=== PATIENT | male | born 1960 | race Caucasian/White ===

== ENCOUNTER 2018-12-01 10:14 | Emergency (ER) | payer OTHER ==
[2018-12-01 10:58] VITALS: PULSE 67; BMI 29.1
--- NOTE | 2018-12-01 11:00 | PDOC ---
History of Present Illness - General Chief Complaint: Injury Stated Complaint: FALL Time Seen by Provider: 12/01/18 10:32 - History of Present Illness Initial Comments: 12/01/18 10:59 The patient is a 58 year old male with a PMH of COPD (not on home O2) presents s /p fall. Patient was standing on a chair (approximately 3 feet high) spackling his ceiling when the chair underneath him broke and he fell on his back, hitting his head. No LOC, was able to ambulate using his cane (baseline) after falling. Now c/o headache, R knee pain. Patient reports a h/o noxious fumes from his ceiling for the last month with some blurry vision. Allergy: Penicillin Surgical: none reported PMD: Dr. Mcghee Past History - Past Medical History Allergies/Adverse Reactions: Allergies Allergy/AdvReac Type Severity Reaction Status Date / Time Penicillins Allergy Severe Difficulty Verified 12/01/18 10:39 Breathing CHOCOLATE AdvReac Mild Rash Uncoded 12/01/18 10:39 EGGS AdvReac Mild Rash Uncoded 12/01/18 10:39 Home Medications: Ambulatory Orders Albuterol Sulfate [Proair Hfa -] 1 - 2 inh PO QID 03/10/15 Beclomethasone Dipropionate [Qvar] 8.7 gm IH BID 03/10/15 traZODone HCL [Desyrel -] 50 mg PO HS 03/10/15 Fluticasone/Salmeterol [Advair 250-50 Diskus] 1 each IH Q12H #1 disk.w.dev 03/12 Ipratropium/Albuterol Sulfate [Combivent Respimat Inhal [place]] 4 gm IH Q6H #1 aer.w.adap 03/12/15 Montelukast Na [Singulair -] 10 mg PO HS #30 tablet 03/12/15 Nicotine Patch [Nicoderm Patch -] 1 patch TD DAILY #30 patch 03/12/15 predniSONE [Deltasone -] 5 mg PO ASDIR #78 tab 03/12/15 Asthma: Yes COPD: Yes - Immunization History Immunization Up to Date: Yes - Suicide/Smoking/Psychosocial Hx Smoking History: Never smoked Have you smoked in the past 12 months: No Number of Cigarettes Smoked Daily: 8 Information on smoking cessation initiated: No 'Breaking Loose' booklet given: 08/31/11 Hx Alcohol Use: No Drug/Substance Use Hx: No Substance Use Type: Alcohol, Cocaine Hx Substance Use Treatment: Yes Review of Systems - Review of Systems Constitutional: Yes: Other (Headache). No: Chills, Fever HEENTM: Yes: Blurred Vision Respiratory: No: Cough, Shortness of Breath Cardiac (ROS): No: Chest Pain, Lightheadedness, Palpitations, Syncope ABD/GI: No: Constipated, Diarrhea, Nausea, Vomiting *Physical Exam - Vital Signs Last Vital Signs Temp Pulse Resp BP Pulse Ox 97.6 F 67 18 108/72 96 12/01/18 10:29 12/01/18 10:29 12/01/18 10:29 12/01/18 10:29 12/01/18 10:29 - Physical Exam Comments: 12/01/18 14:51 Triage VS reviewed Trauma: pelvis stable, alert, moves all 4 extremities, No Kaur sign/Mastoid ecchymosis General Appearance: Yes: Nourished, Obese HEENT: positive: Normal Voice, Hearing Grossly Normal, Other (Snellen Test: R: 20/25, L: 20/40) Neck: positive: Trachea midline, Supple Respiratory/Chest: positive: Lungs Clear, Normal Breath Sounds Cardiovascular: positive: S1, S2 Gastrointestinal/Abdominal: positive: Normal Bowel Sounds, Soft. negative: Tender, Hernia, Mass Medical Decision Making - Medical Decision Making 12/01/18 12:02 58 y/o male s/p mechanical fall, c/o headache VS unremarkable Trauma exam w/o concerning findings - patient moves all 4 extremities, pelvis stable, ambulatory, no obvious cranial hematoma, no Kaur sign, mastoid ecchmosis; No focal neurologic deficit, however RLE w/tibial tuberosity TTP Will CT Head as per [place] criteria, R Tib/Fib, R knee Tylenol for pain control. Reassess 12/01/18 12:06 Case d/w social work, will evaluate patient in ED 12/01/18 12:[address] negative Tib Fib, Knee XR negative Patient recieving IV analgesia 12/01/18 14:26 Patient ambulatory around ED, symptomatically improved. Will discharge home with return precautions, pain control. I discussed the physical exam findings, ancillary test results and final diagnoses with the patient. I answered all of the patient's questions. The patient was satisfied with the care received and felt comfortable with the discharge plan and treatment plan. The patient will return to the Emergency Department with any new, persistent or worsening symptoms. *DC/Admit/Observation/Transfer Diagnosis at time of Disposition: Fall - Discharge Dispostion Disposition: HOME Condition at time of disposition: Fair Decision to Admit order: No - Referrals Referrals: Richard Mcghee MD [Primary Care Provider] - - Patient Instructions Printed Discharge Instructions: Muscle Strain, How to Prevent Falls Additional Instructions: You were evaluated today for a fall. A copy of your Head CT and X-rays were negative for any concerning findings. You can take Tylenol (up to 4000 mg daily) and Motrin (up 3200 mg daily) every 8 hours for pain. A psych social worker will be calling you with resources for your housing issue. Return to the ED for any new/worsening/concerning symptoms. - Post Discharge Activity
--- NOTE | 2018-12-01 11:06 | PDOC ---
Documentation entered by Joceline Cramer SCRIBE, acting as scribe for Rohan Collier MD. Rohan Collier MD: This documentation has been prepared by the ashleyibeShoaib Natalie, SCRIBE, under my direction and personally reviewed by me in its entirety. I confirm that the documentation accurately reflects all work, treatment, procedures, and medical decision making performed by me. Attending Attestation - Resident Resident Name: ErisInga - ED Attending Attestation I have performed the following: I have examined & evaluated the patient, The case was reviewed & discussed with the resident, I agree w/resident's findings & plan, Exceptions are as noted - HPI HPI: 12/01/18 12:10 The patient is a 58-year-old male, with a past medical history of asthma, COPD ( not on home O2), and bipolar disorder, who presents to the ED s/p mechanical fall today. Patient states that he was standing on a chair (approximately 3ft high) to patch up some holes in the ceiling. The chair broke and the patient fell on his buttocks and hit his head against the door. He denies any loss of consciousness but reports dizziness after the fall. He was down for 10 minutes before he got up and ambulated to a chair. He endorses headache and lower back/ tailbone/LT knee pain. The patient denies having any other injuries or symptoms. Allergies: Penicillins. - Physicial Exam PE: 12/01/18 12:13 Vitals: Triage Vital signs reviewed General Appearance: no acute distress, well nourished well developed, Head: Atraumatic, normocephalic Eyes: Pupils equal reactive round, extraocular movement intact Ears: TM's normal bilaterally; Nose: Nares patent bilaterally;no nasal congestion Throat: Posterior oropharynx without erythema, mucous membranes moist, Neck: Supple;No Nuchal rigidity Chest Wall: Nontender Cardiac: Regular rate and rhythm, no murmurs, no rubs, no gallops, Lungs: Clear to auscultation bilateral, good air movement bilaterally, Abdomen: Soft, nondistended, normal bowel sounds, nontender to palpation Rectal: Exam deferred Extremities: Full range of motion to all extremities, no cyanosis, clubbing, or edema Skin: Warm and dry, no rashes or lesions, no petechiae Neuro: AOX3; Cranial Nerves 2-12 grossly intact, Strength intact to all extremities, Sensation intact to all extremities Psych: normal mood, normal affect - Medical Decision Making 12/01/18 16:38 Imaging negative no acute pathology found patient able to ambulate more comfortably after Tylenol patient will follow up with his primary care provider this week Findings, the need for follow-up and strict return instructions discussed with patient.
[2018-12-01] MEDS ORDERED: ACETAMINOPHEN 1000 MG/100 ML VIAL (NON FORMULARY) IVPB ONE (11:29)
[2018-12-01] MEDS ORDERED: ACETAMINOPHEN INJECTION 100 ML IVPB ONE (12:16)
[2018-12-01 15:29] VITALS: BP 109/69; TEMP 97.7
== END 2018-12-01 15:29 | disposition home or self-care (01) ==
LOC: JER 10:14
PROC: 3E033NZ Introduction of Analgesics, Hypnotics, Sedatives into Peripheral Vein, Percutaneous Approach (ICD-10-PCS; principal; 2018-12-01)
DX: Z04.3 Encounter for examination and observation following other accident (principal); W18.39XA Other fall on same level, initial encounter; Y93.89 Activity, other specified; Y92.008 Other place in unspecified non-institutional (private) residence as the place of occurrence of the external cause; J44.9 Chronic obstructive pulmonary disease, unspecified
CPT/HCPCS: 70450-TC; 72100-TC-FY; 73562-TC-RT-FY; 73590-TC-RT-FY; 96374; 99281-25; J0131

== ENCOUNTER 2019-01-09 21:45 | Inpatient (IN) | payer OTHER ==
[2019-01-09] MEDS ORDERED: methylPREDNISolone NA SUCC 125 MG/2 ML VIAL IVPB ONE (22:44)
[2019-01-09] MEDS ORDERED: MAGNESIUM SULF 50% (8.12 MEQ/2 ML-1 GM VIAL) IVPB ONE (22:44)
[2019-01-09] MEDS ORDERED: ALBUTEROL SO4 2.5/IPRATROPIUM 0.5 INH SOL 3 ML VIAL.NEB. NEB ONE ×2 (22:44→23:02)
[2019-01-09] MEDS ORDERED: MAGNESIUM 1GM/D5W - 1 GM/100 ML IVPB IVPB ONE (23:03)
[2019-01-09] MEDS ORDERED: methylPREDNISolone NA SUCC 125 MG/2 ML VIAL ONE (23:03)
--- NOTE | 2019-01-09 23:18 | PDOC ---
History of Present Illness - General Chief Complaint: Shortness of Breath Stated Complaint: SOB Time Seen by Provider: 01/09/19 22:30 History Source: Patient Exam Limitations: No Limitations - History of Present Illness Initial Comments: 01/09/19 23:17 58 yo M with a hx of COPD/asthma (not on home O2), essential tremors, and bipolar disorder presents to the emergency department with SOB that began this morning. Per the patient, he gets intermittent SOB episodes. He states he has a strong bleach like odor in his apartment for the past 2-3 months that worsens his shortness of breath. He states he has chest tightness with radiation to the his back that began today. He describes the pain as pressure like sensation. Denies fever and chills, but endorses non productive coughs. Past History - Past Medical History Allergies/Adverse Reactions: Allergies Allergy/AdvReac Type Severity Reaction Status Date / Time Penicillins Allergy Severe Difficulty Verified 01/09/19 22:14 Breathing CHOCOLATE AdvReac Mild Rash Uncoded 01/09/19 22:14 EGGS AdvReac Mild Rash Uncoded 01/09/19 22:14 Home Medications: Ambulatory Orders Acetaminophen [Tylenol Extra Strength] 1,000 mg PO BID 01/09/19 Albuterol Sulfate [Proair Hfa] 8.5 gm IH BID 01/09/19 Famotidine [Pepcid -] 40 mg PO DAILY 01/09/19 Fluticasone/Salmeterol [Advair 250-50 Diskus] 1 each IH BID 01/09/19 Gabapentin [Neurontin -] 300 mg PO BID 01/09/19 Ipratropium/Albuterol Sulfate [Combivent Respimat Inhal [place]] 4 gm IH BID 01/09 Lamotrigine [Lamictal] 100 mg PO DAILY 01/09/19 Loratadine 10 mg PO DAILY 01/09/19 Montelukast Sodium [Singulair] 10 mg PO HS 01/09/19 Primidone [Mysoline -] 50 mg PO HS 01/09/19 Propranolol HCl 60 mg PO DAILY 01/09/19 Topiramate [Trokendi Xr] 100 mg PO BID 01/09/19 Trazodone HCl 200 mg PO HS 01/09/19 Asthma: Yes COPD: Yes - Immunization History Immunization Up to Date: Yes - Psycho Social/Smoking Cessation Hx Smoking History: Never smoked Have you smoked in the past 12 months: Yes Number of Cigarettes Smoked Daily: 8 'Breaking Loose' booklet given: 08/31/11 Hx Alcohol Use: No Drug/Substance Use Hx: No Substance Use Type: Alcohol, Cocaine Hx Substance Use Treatment: Yes Review of Systems - Review of Systems Able to Perform ROS?: Yes Is the patient limited Wallisian proficient: No Constitutional: No: Chills, Diaphoresis, Fever, Weakness HEENTM: No: Eye Pain, Ear Pain, Nose Pain, Throat Pain, Mouth Pain Respiratory: Yes: Cough, Shortness of Breath, Wheezing. No: Hemoptysis Cardiac (ROS): Yes: Chest Tightness. No: Chest Pain, Lightheadedness, Palpitations, Syncope ABD/GI: No: Constipated, Diarrhea, Nausea, Rectal Bleeding, Vomiting, Tarry Stools : No: Burning, Dysuria, Hematuria, Incontinence Musculoskeletal: No: Back Pain, Joint Pain, Neck Pain Integumentary: No: Bruising, Erythema, Rash Neurological: No: Headache, Numbness, Tingling, Tremors Psychiatric: No: Change in Appetite Endocrine: No: Unexplained Weight Gain Hematologic/Lymphatic: No: Anemia *Physical Exam - Vital Signs Last Vital Signs Temp Pulse Resp BP Pulse Ox 97.6 F 90 24 H 133/97 100 01/09/19 21:45 01/09/19 21:45 01/09/19 21:45 01/09/19 21:45 01/09/19 21:45 - Physical Exam Respiratory/Chest: positive: Decreased Breath Sounds, Rhonchi (bilaterally), Wheezing (bilaterally). negative: Chest Tender, Lungs Clear, Normal Breath Sounds, Respiratory Distress, Accessory Muscle Use Cardiovascular: positive: Regular Rhythm, Regular Rate, S1, S2. negative: Systolic Murmur ED Treatment Course - LABORATORY CBC & Chemistry Diagram: 01/09/19 23:12 01/09/19 23:12 - RADIOLOGY Radiology Studies Ordered: Category Date Time Status CHEST CTA [CT] Stat CT Scan 01/09/19 23:03 Ordered CHEST PA & LAT [RAD] Stat Radiology 01/09/19 22:43 Ordered Medical Decision Making - Medical Decision Making 01/10/19 03:19 CTA states it is limited due to under opacification of the pulmonary arteries. No pulmonary embolus in the major central pulmonary arteries. Distal to this, there is no definite embolus but these arteries are not well evaluated due to under opacification. Lungs are clear of acute disease. Patient was reassessed s/p solumedrol and duoneb x3. Continues to have SOB with wheezing auscultated bilaterally on exam with O2% at 90-92. Patient to be admitted for COPD exacerbation. Discharge - Discharge Information Problems reviewed: Yes Clinical Impression/Diagnosis: COPD - Chronic obstructive lung disease Condition: Fair - Follow up/Referral - Patient Discharge Instructions - Post Discharge Activity
[2019-01-09 23:20] LABS: BASO % 0.6 % (0-2.0); EOS % 1.7 % (0-4.5); HEMATOCRIT 42.5 % (35.4-49); HEMOGLOBIN 14.1 GM/dL (11.7-16.9); LYMPH % 30.5 % (8-40); MCH 31.6 pg (25.7-33.7); MCHC 33.1 g/dl (32.0-35.9); MEAN CELL VOLUME 95.4 fl (80-96); MEAN PLT VOLUME 8.7 fl (7.5-11.1); MONO % 4.6 % (3.8-10.2); NEUT % 62.6 % (42.8-82.8); PLATELET COUNT 209 K/MM3 (134-434); RBC 4.46 M/mm3 (4.00-5.60); RDW 14.1 % (11.9-15.9); WHITE BLOOD COUNT 9.5 K/mm3 (4.0-10.0)
[2019-01-09 23:31] LABS: INR 1.07 (0.83-1.09); PROTHROMBIN TIME (PATIENT) 12.6 SEC (9.7-13.0)
[2019-01-09 23:49] LABS: ALBUMIN 3.8 g/dl (3.4-5.0); BILIRUBIN,TOTAL 0.5 mg/dL (0.2-1); BLOOD UREA NITROGEN 19.2 mg/dL (7-18); CALCIUM 9.3 mg/dL (8.5-10.1); CREATININE 0.9 mg/dL (0.55-1.3); MAGNESIUM 2.4 mg/dL (1.8-2.4); POTASSIUM 3.9 mmol/L (3.5-5.1); TOT PROT 7.3 g/dl (6.4-8.2)
[2019-01-09 23:54] LABS: N-TERMINAL BNP 98.3 pg/ml (5-125)
--- NOTE | 2019-01-10 00:34 | PDOC ---
Documentation entered by Jonathan Fan SCRIBE, acting as scribe for Lori Wyman MD. Lori Wyman MD: This documentation has been prepared by the Meng rodriguez Xhesika, SCRIBE, under my direction and personally reviewed by me in its entirety. I confirm that the documentation accurately reflects all work, treatment, procedures, and medical decision making performed by me. Attending Attestation - Resident Resident Name: Tyler Ocampo - ED Attending Attestation I have performed the following: I have examined & evaluated the patient, The case was reviewed & discussed with the resident, I agree w/resident's findings & plan, Exceptions are as noted - HPI HPI: 01/09/19 22:32 The patient is a 58-year-old male, with a past medical history of asthma, COPD ( not on home O2), tremors, and bipolar disorder, who presents to the ED with SOB. Pt was in the ED accompanying his mother who was admitted in the ED when he came out the bathroom with his cane, patient was diaphoretic, wheezing, endorsed vertigo and felt SOB. Pt was immediately sat on a bed and was seen. Patient reports he has been endorsing chronic lower back pain (L5) for the past month. The patient denies chest pain, shortness of breath, headache and dizziness. Denies fever, chills, cough, nausea, vomiting, diarrhea and constipation. Denies dysuria, frequency, urgency and hematuria. Allergies: penicillins. chocolate. PCP: [facility] - Physicial Exam PE: 01/10/19 00:27 obese 58 yo male became diaphoretic,short of breath while visiting his mother who was an admitted patient at [facility] neck supple lungs diffuse coarse wheezing cvs tachycardia skin diaphoretic abdomen protuberant,nontender neuro axox3, ambulating w cane psych anxious 01/10/19 00:39 - Medical Decision Making 01/10/19 00:41 labs essentially unremarkable ,sl elevated glucose pt has wheezing and received bronchodilators, steroids, magnesium 01/10/19 00:45 EKG is normal sinus rhythm at 88 bpm, QTC 440 ms, some nonspecific ST abnormalities.This was compared to his EKG from 2014 and there are no significant changes since that time. 01/10/19 00:48 01/10/19 00:55 IMP copd exacerbation admit
--- NOTE | 2019-01-10 04:32 | HP ---
Admitting History and Physical - Primary Care Physician PCP: Dr. Mcghee - Admission Chief Complaint: SOB History of Present Illness: 58 year old male with PMHx of COPD/asthma, essential tremors, and bipolar disorder was in the ED accompanying his mother when suddenly patient became diaphoretic, SOB, wheezing, complained of vertigo like sensation. As per patient , he gets intermittent SOB episodes, with chest tightness for about a month. He states he has a strong bleach like odor in his apartment for the past 2-3 months that worsens his shortness of breath. Patient states he went to urgent care last week was given antibiotics and steroids, and was to have a follow up there, patient denies fever and chills, but endorses non-productive cough. 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) Cardiovascular: Yes: HTN Pulmonary: Yes: Asthma, COPD Gastrointestinal: Yes: GERD Psych: Yes: Bipolar - Smoking History Smoking history: Smoker current status UNK Have you smoked in the past 12 months: Yes Aproximately how many cigarettes per day: 8 - Alcohol/Substance Use Hx Alcohol Use: No History of Substance Use: reports: Cocaine - Social History ADL: Independent History of Recent Travel: No Home Medications - Allergies Allergies/Adverse Reactions: Allergies Allergy/AdvReac Type Severity Reaction Status Date / Time Penicillins Allergy Severe Difficulty Verified 01/09/19 22:14 Breathing CHOCOLATE AdvReac Mild Rash Uncoded 01/09/19 22:14 EGGS AdvReac Mild Rash Uncoded 01/09/19 22:14 - Home Medications Home Medications: Ambulatory Orders Acetaminophen [Tylenol Extra Strength] 1,000 mg PO BID 01/09/19 Albuterol Sulfate [Proair Hfa] 8.5 gm IH BID 01/09/19 Famotidine [Pepcid -] 40 mg PO DAILY 01/09/19 Fluticasone/Salmeterol [Advair 250-50 Diskus] 1 each IH BID 01/09/19 Gabapentin [Neurontin -] 300 mg PO BID 01/09/19 Ipratropium/Albuterol Sulfate [Combivent Respimat Inhal [place]] 4 gm IH BID 01/09 Lamotrigine [Lamictal] 100 mg PO DAILY 01/09/19 Loratadine 10 mg PO DAILY 01/09/19 Montelukast Sodium [Singulair] 10 mg PO HS 01/09/19 Olopatadine HCl 2.5 ml OP BID 01/09/19 Primidone [Mysoline -] 100 mg PO HS 01/09/19 Propranolol HCl 60 mg PO DAILY 01/09/19 Topiramate [Trokendi Xr] 100 mg PO BID 01/09/19 Trazodone HCl 100 mg PO BID 01/09/19 Varenicline Tartrate [Chantix] 1 mg PO BID 01/09/19 Family Medical History Family History: Denies Review of Systems - Review of Systems Constitutional: reports: No Symptoms Eyes: reports: No Symptoms HENT: reports: No Symptoms Neck: reports: No Symptoms Cardiovascular: reports: Chest Pain Respiratory: reports: Cough, SOB on Exertion, Wheezing Gastrointestinal: reports: No Symptoms Genitourinary: reports: No Symptoms Musculoskeletal: reports: No Symptoms Integumentary: reports: No Symptoms Neurological: reports: Dizziness Endocrine: reports: No Symptoms Hematology/Lymphatic: reports: No Symptoms Psychiatric: reports: No Symptoms Physical Examination Vital Signs: Vital Signs Temperature 97.6 F 01/09/19 21:45 Pulse Rate 90 01/09/19 21:45 Respiratory Rate 24 H 01/09/19 21:45 Blood Pressure 133/97 01/09/19 21:45 O2 Sat by Pulse Oximetry (%) 100 01/09/19 21:45 Constitutional: Yes: No Distress, Calm Eyes: Yes: Conjunctiva Clear, EOM Intact HENT: Yes: Atraumatic, Normocephalic Neck: Yes: Supple, Trachea Midline Cardiovascular: Yes: Regular Rate and Rhythm Respiratory: Yes: Regular, Rales Gastrointestinal: Yes: Normal Bowel Sounds, Soft Musculoskeletal: Yes: WNL Extremities: Yes: WNL Edema: No Peripheral Pulses WNL: Yes Neurological: Yes: Alert, Oriented Labs: CBC, BMP 01/09/19 23:12 01/09/19 23:12 Imaging - Results Cat Scan: Report Reviewed (CTA states it is limited due to under opacification of the pulmonary arteries. No pulmonary embolus in the major central pulmonary arteries. Distal to this, there is no definite embolus but these arteries are not well evaluated due to under opacification. Lungs are clear of acute disease. ) EKG: Report Reviewed (EKG is normal sinus rhythm at 88 bpm) Problem List - Problems (1) Acute exacerbation of COPD with asthma Code(s): J44.1 - CHRONIC OBSTRUCTIVE PULMONARY DISEASE W (ACUTE) EXACERBATION; J45.901 - UNSPECIFIED ASTHMA WITH (ACUTE) EXACERBATION (2) Bipolar disorder current episode depressed Code(s): F31.30 - BIPOLAR DISORD, CRNT EPSD DEPRESS, MILD OR MOD SEVERT, UNSP (3) Essential tremor Code(s): G25.0 - ESSENTIAL TREMOR (4) GERD (gastroesophageal reflux disease) Code(s): K21.9 - GASTRO-ESOPHAGEAL REFLUX DISEASE WITHOUT ESOPHAGITIS (5) Nicotine dependence Code(s): F17.200 - NICOTINE DEPENDENCE, UNSPECIFIED, UNCOMPLICATED Assessment/Plan 58 year old male with PMHx of COPD/asthma, essential tremors, and bipolar disorder was in the ED accompanying his mother when suddenly patient became diaphoretic, SOB, wheezing, complained of vertigo like sensation. As per patient , he gets intermittent SOB episodes, with chest tightness for about a month. #Acute COPD exacerbation CTA states it is limited due to under opacification of the pulmonary arteries. No pulmonary embolus in the major central pulmonary arteries. Distal to this, there is no definite embolus but these arteries are not well evaluated due to under opacification. Lungs are clear of acute disease. in ED given : nebsx3, solu-medrol and magnesium sulfate -continue with oxygen 3 L/min -continue with solumedrol 40mg IV q8h -continue with duonebs standing q 4 hours -continue with Montelukast Sodium 10 mg PO HS # Esential tremors -Primidone 100 mg PO HS -Propranolol HCl 60 mg PO DAILY -Topiramate 100 mg PO BID # Bipolar disorder -Lamotrigine 100 mg PO DAILY -Trazodone HCl 100 mg PO BID # GERD -Famotidine 40 mg PO DAILY # nicotine dependence - Varenicline Tartrate 1 mg PO BID Diet: regular diet DVT PPX: heparin SQ Visit type - Emergency Visit Emergency Visit: Yes ED Registration Date: 01/10/19 Care time: The patient presented to the Emergency Department on the above date and was hospitalized for further evaluation of their emergent condition. - New Patient This patient is new to me today: Yes Date on this admission: 01/10/19 - Critical Care Critical Care patient: No
[2019-01-10] MEDS ORDERED: ACETAMINOPHEN 325 MG TABLET (FP) PO PRN (04:49)
[2019-01-10] MEDS ORDERED: IPRATROPIUM BR 0.02% 0.5 MG/2.5 ML VIAL.NEB. NEB ONE ×2 (08:02→13:02)
[2019-01-10] MEDS ORDERED: ALBUTEROL SO4 0.083% IH SOL 2.5 MG/3 ML VIAL.NEB. NEB ONE ×2 (08:02→13:02)
[2019-01-10] MEDS: IPRATROPIUM BR 0.02% 0.5 MG/2.5 ML VIAL.NEB. NEB SCH ×4 (08:07→20:43)
[2019-01-10] MEDS: ALBUTEROL SO4 0.083% IH SOL 2.5 MG/3 ML VIAL.NEB. NEB SCH ×4 (08:07→20:43)
[2019-01-10] MEDS ORDERED: lamoTRIgine 100 MG TABLET (FP) ONE (09:33)
[2019-01-10] MEDS: lamoTRIgine 100 MG TABLET (FP) PO SCH (09:35)
--- NOTE | 2019-01-10 09:52 | EKG ---
Test Reason : Blood Pressure : / mmHG Vent. Rate : 088 BPM Atrial Rate : 088 BPM P-R Int : 164 ms QRS Dur : 086 ms QT Int : 364 ms P-R-T Axes : 071 073 067 degrees QTc Int : 440 ms NORMAL SINUS RHYTHM POSSIBLE LEFT ATRIAL ENLARGEMENT NONSPECIFIC ST ABNORMALITY ABNORMAL ECG WHEN COMPARED WITH ECG OF 10-MAR-2015 15:57, NO SIGNIFICANT CHANGE WAS FOUND Confirmed by SILVIA GALINDO, JESSICA ([id number]) on 01/10/2019 9:52:05 AM Referred By: Confirmed By:JESSICA VEGA MD
[2019-01-10] MEDS ORDERED: PATIENT'S OWN MEDICATION (NON-FORMULARY) (Propranolol Hcl [Propranolol Hcl] 60 MG) PO SCH (10:00)
[2019-01-10] MEDS ORDERED: LAMOTRIGINE 100 MG PO SCH (10:00)
[2019-01-10] MEDS ORDERED: PATIENT'S OWN MEDICATION (NON-FORMULARY) (Famotidine 40 MG) PO SCH (10:00)
[2019-01-10] MEDS ORDERED: PATIENT'S OWN MEDICATION (NON-FORMULARY) (Trazodone Hcl [Trazodone Hcl] 100 MG) PO SCH (10:00)
[2019-01-10] MEDS ORDERED: PATIENT'S OWN MEDICATION (NON-FORMULARY) (Topiramate [Trokendi Xr] 100 MG) PO SCH (10:00)
[2019-01-10] MEDS: VARENICLINE TARTRATE 1 MG TAB PO SCH (11:15)
[2019-01-10] MEDS: traZODone HCL 100 MG TABLET (FP) PO SCH (11:15)
--- NOTE | 2019-01-10 11:24 | PN ---
Progress Note, Physician Chief Complaint: COPD Exacerbation SOB History of Present Illness: Previous notes and events reviewed awake and alert NAD continues to have SOB with non productive cough and chest tightness no acute events overnight - Current Medication List Current Medications: Active Medications Acetaminophen (Tylenol -) 650 mg PO Q4H PRN PRN Reason: PAIN LEVEL 1-5 Albuterol Sulfate (Ventolin 0.083% Nebulizer Soln -) 1 amp NEB RQID [facility] Last Admin: 01/10/19 08:07 Dose: 1 amp Famotidine (Pepcid -) 40 mg PO DAILY [facility] Gabapentin (Neurontin -) 300 mg PO BID [facility] Heparin Sodium (Porcine) (Heparin -) 5,000 unit SQ BID [facility] Ipratropium [place] (Atrovent 0.02% Nebulizer -) 1 amp NEB RQID [facility] Last Admin: 01/10/19 08:07 Dose: 1 amp Lamotrigine (Lamictal -) 100 mg PO DAILY [facility] Last Admin: 01/10/19 09:35 Dose: 100 mg Methylprednisolone Sodium Succinate (Solu-Medrol -) 40 mg IVPUSH Q8H-IV [facility] Montelukast Sodium (Singulair -) 10 mg PO HS [facility] Non-Formulary Medication (Topiramate [Trokendi Xr]) 100 mg PO BID [facility] Primidone (Mysoline -) 100 mg PO HS [facility] Propranolol HCl (Inderal La -) 60 mg PO DAILY [facility] Trazodone HCl (Desyrel -) 100 mg PO BID [facility] Last Admin: 01/10/19 11:15 Dose: Not Given Varenicline (Chantix -) 1 mg PO BID [facility] Last Admin: 01/10/19 11:15 Dose: Not Given - Objective Vital Signs: Vital Signs Temperature 97.6 F 01/09/19 21:45 Pulse Rate 75 01/10/19 08:00 Respiratory Rate 18 01/10/19 08:00 Blood Pressure 127/84 01/10/19 08:00 O2 Sat by Pulse Oximetry (%) 99 01/10/19 08:00 Constitutional: Yes: No Distress, Calm Eyes: Yes: Conjunctiva Clear HENT: Yes: Atraumatic Cardiovascular: Yes: Regular Rate and Rhythm Respiratory: Yes: Regular, Rhonchi Gastrointestinal: Yes: Normal Bowel Sounds, Soft, Abdomen, Obese Musculoskeletal: Yes: WNL Extremities: Yes: WNL Edema: No Neurological: Yes: Alert, Oriented Psychiatric: Yes: Alert, Oriented Labs: CBC, BMP 01/09/19 23:12 01/09/19 23:12 INR, PTT INR 1.07 (0.83-1.09) 01/09/19 23:12 Problem List - Problems (1) Bipolar disorder Assessment/Plan: -Trazodone, Lamictal Code(s): F31.9 - BIPOLAR DISORDER, UNSPECIFIED (2) Acute exacerbation of COPD with asthma Assessment/Plan: -Pulm consult -Bronchodilators -Solumedrol -Keep SpO2 >90% -O2 via NC -Montelukast -Chest CTA shows suboptimal opacification of the pulmonary vasculature with no gross evidence of of PE, no acute pathology within chest Code(s): J44.1 - CHRONIC OBSTRUCTIVE PULMONARY DISEASE W (ACUTE) EXACERBATION; J45.901 - UNSPECIFIED ASTHMA WITH (ACUTE) EXACERBATION (3) Essential tremor Assessment/Plan: -Propanolol Code(s): G25.0 - ESSENTIAL TREMOR (4) GERD (gastroesophageal reflux disease) Assessment/Plan: -Famotidine Code(s): K21.9 - GASTRO-ESOPHAGEAL REFLUX DISEASE WITHOUT ESOPHAGITIS (5) Nicotine dependence Assessment/Plan: -Varenicline Tartrate Code(s): F17.200 - NICOTINE DEPENDENCE, UNSPECIFIED, UNCOMPLICATED Assessment/Plan see problem list dvt ppx
[2019-01-10] MEDS: FAMOTIDINE 40 MG TABLET PO SCH (11:45)
[2019-01-10] MEDS: HEPARIN NA (PORCINE) 5,000 UNITS/ML 1ML VIAL SQ SCH (11:45)
[2019-01-10] MEDS: methylPREDNISolone NA SUCC 40 MG/1 ML VIAL IVPUSH SCH ×2 (11:45→18:45)
[2019-01-10] MEDS: GABAPENTIN 300 MG CAPSULE (FP) PO SCH (11:45)
[2019-01-10] MEDS ORDERED: HEPARIN NA (PORCINE) 5,000 UNITS/ML 1ML VIAL ONE (11:51)
[2019-01-10] MEDS ORDERED: GABAPENTIN 100 MG CAPSULE (FP) ONE (11:51)
[2019-01-10] MEDS ORDERED: methylPREDNISolone NA SUCC 40 MG/1 ML VIAL ONE (11:51)
--- NOTE | 2019-01-10 13:16 | CON.PULM ---
Consult Consult Specialty:: PULMONARY Referred by:: Dr Mcghee Reason for Consultation:: shortness of breath - History of Present Illness Chief Complaint: shortness of breath History of Present Illness: 58yo male with h/o COPD, essential tremors, bipolar disorder who was admitted with worsening shortness of breath for months. Denies chest pain or discomfort but does experience chest tightness. No fevers, chills or sweats. States that there is an odor in his apartment that he thinks is triggering his shortness of breath. +nonproductive cough and wheezing. He quit smoking in June after smoking about 1 PPD x 40 years. Was recently started on Advair, Combivent and albuterol. Was seen in urgent care recently who started him on prednisone and antibiotics. 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 (essential tremors) Cardio/Vascular: Yes: HTN Pulmonary: Yes: Asthma, COPD Gastrointestinal: Yes: GERD Psych: Yes: Bipolar - Alcohol/Substance Use Hx Alcohol Use: No History of Substance Use: reports: Cocaine - Smoking History Smoking history: Smoker current status UNK Have you smoked in the past 12 months: Yes Aproximately how many cigarettes per day: 8 - Social History ADL: Independent History of Recent Travel: No Home Medications - Allergies Allergies/Adverse Reactions: Allergies Allergy/AdvReac Type Severity Reaction Status Date / Time Penicillins Allergy Severe Difficulty Verified 01/09/19 22:14 Breathing CHOCOLATE AdvReac Mild Rash Uncoded 01/09/19 22:14 EGGS AdvReac Mild Rash Uncoded 01/09/19 22:14 - Home Medications Home Medications: Ambulatory Orders Acetaminophen [Tylenol Extra Strength] 1,000 mg PO BID 01/09/19 Albuterol Sulfate [Proair Hfa] 8.5 gm IH BID 01/09/19 Famotidine [Pepcid -] 40 mg PO DAILY 01/09/19 Fluticasone/Salmeterol [Advair 250-50 Diskus] 1 each IH BID 01/09/19 Gabapentin [Neurontin -] 300 mg PO BID 01/09/19 Ipratropium/Albuterol Sulfate [Combivent Respimat Inhal [place]] 4 gm IH BID 01/09 Lamotrigine [Lamictal] 100 mg PO DAILY 01/09/19 Loratadine 10 mg PO DAILY 01/09/19 Montelukast Sodium [Singulair] 10 mg PO HS 01/09/19 Primidone [Mysoline -] 50 mg PO HS 01/09/19 Propranolol HCl 60 mg PO DAILY 01/09/19 Topiramate [Trokendi Xr] 100 mg PO BID 01/09/19 Trazodone HCl 200 mg PO HS 01/09/19 Review of Systems - Review of Systems Constitutional: reports: Weakness. denies: Chills, Fever Eyes: denies: Recent Change in Vision HENT: denies: Nasal Congestion, Throat Pain Neck: denies: Stiffness, Tenderness Cardiovascular: reports: Shortness of Breath. denies: Chest Pain, Edema Respiratory: reports: Cough, Exercise Intolerance, SOB on Exertion, Wheezing. denies: Hemoptysis Gastrointestinal: denies: Abdominal Pain, Nausea, Vomiting Genitourinary: denies: Dysuria, Hematuria Neurological: reports: Dizziness. denies: Headache Endocrine: denies: Unexplained Weight Loss Physical Exam Vital Sings: Vital Signs Temperature 98.9 F 01/10/19 13:07 Pulse Rate 81 01/10/19 13:07 Respiratory Rate 17 01/10/19 13:07 Blood Pressure 144/104 H 01/10/19 13:07 O2 Sat by Pulse Oximetry (%) 95 01/10/19 13:07 Constitutional: Yes: Calm Eyes: Yes: Conjunctiva Clear, EOM Intact HENT: Yes: Atraumatic, Normocephalic Neck: Yes: Supple, Trachea Midline Cardiovascular: Yes: Regular Rate and Rhythm Respiratory: Yes: Rhonchi, Wheezes ...Clubbing: No Gastrointestinal: Yes: Normal Bowel Sounds, Soft. No: Tenderness Edema: No Neurological: Yes: Alert, Oriented Labs: CBC, BMP 01/09/19 23:12 01/09/19 23:12 Imaging - Results Chest X-ray: Report Reviewed, Image Reviewed Cat Scan: Report Reviewed, Image Reviewed (no infiltrates) Problem List - Problems (1) Acute exacerbation of COPD with asthma Code(s): J44.1 - CHRONIC OBSTRUCTIVE PULMONARY DISEASE W (ACUTE) EXACERBATION; J45.901 - UNSPECIFIED ASTHMA WITH (ACUTE) EXACERBATION Assessment/Plan Acute COPD Exacerbation Bipolar Disorder Former Smoker - IV medrol - inhaled bronchodilators standing and PRN - O2 to keep SpO2 >90% - philipulair - azithromycin - DVT prophylaxis - outpt PFTs Thank you for this consult Elias Rodriguez MD
[2019-01-10 17:23] VITALS: BMI 40.4
[2019-01-10] MEDS: AZITHROMYCIN IVPB 500 MG/250 ML BAG IVPB SCH (18:46)
[2019-01-10] MEDS: ARTIFICIAL TEARS (POLYVINYL ALCOHOL) OPTH DROPS OU PRN (20:55)
[2019-01-10] MEDS ORDERED: PT OWN MED DRAWER 7, Y5N ONE (23:50)
[2019-01-11] MEDS: traZODone HCL 100 MG TABLET (FP) PO SCH ×3 (00:12→21:42)
[2019-01-11] MEDS: GABAPENTIN 300 MG CAPSULE (FP) PO SCH ×3 (00:12→21:42)
[2019-01-11] MEDS: VARENICLINE TARTRATE 1 MG TAB PO SCH ×3 (00:13→21:42)
[2019-01-11] MEDS: PRIMIDONE 50 MG TABLET PO SCH ×2 (00:15→21:42)
[2019-01-11] MEDS: MONTELUKAST NA 10 MG TABLET PO SCH ×2 (00:16→21:42)
[2019-01-11] MEDS: HEPARIN NA (PORCINE) 5,000 UNITS/ML 1ML VIAL SQ SCH ×3 (00:16→21:42)
[2019-01-11] MEDS: methylPREDNISolone NA SUCC 40 MG/1 ML VIAL IVPUSH SCH ×3 (01:27→17:31)
[2019-01-11 07:59] LABS: HEMATOCRIT 40.6 % (35.4-49); HEMOGLOBIN 13.6 GM/dL (11.7-16.9); MCH 32.3 pg (25.7-33.7); MCHC 33.6 g/dl (32.0-35.9); MEAN CELL VOLUME 96.1 fl (80-96); MEAN PLT VOLUME 8.4 fl (7.5-11.1); PLATELET COUNT 201 K/MM3 (134-434); RBC 4.23 M/mm3 (4.00-5.60); WHITE BLOOD COUNT 8.4 K/mm3 (4.0-10.0)
[2019-01-11] MEDS: ALBUTEROL SO4 0.083% IH SOL 2.5 MG/3 ML VIAL.NEB. NEB SCH ×4 (08:00→20:35)
[2019-01-11] MEDS: IPRATROPIUM BR 0.02% 0.5 MG/2.5 ML VIAL.NEB. NEB SCH ×4 (08:00→20:34)
[2019-01-11 09:01] LABS: POTASSIUM 5.3 mmol/L (3.5-5.1)
[2019-01-11 09:09] LABS: ALBUMIN 3.8 g/dl (3.4-5.0); BILIRUBIN,TOTAL 0.6 mg/dL (0.2-1); BLOOD UREA NITROGEN 20.2 mg/dL (7-18); CALCIUM 9.3 mg/dL (8.5-10.1); CREATININE 0.7 mg/dL (0.55-1.3); TOT PROT 7.5 g/dl (6.4-8.2)
[2019-01-11] MEDS ORDERED: PT OWN MED DRAWER 7, Y5N ONE ×3 (09:27→21:37)
[2019-01-11] MEDS: lamoTRIgine 100 MG TABLET (FP) PO SCH (10:03)
[2019-01-11] MEDS: AZITHROMYCIN IVPB 500 MG/250 ML BAG IVPB SCH (10:13)
[2019-01-11] MEDS: FAMOTIDINE 40 MG TABLET PO SCH (10:13)
--- NOTE | 2019-01-11 11:12 | PN ---
Progress Note (short form) - Note Progress Note: PULMONARY Breathing slightly better. +cough now with green sputum. Still wheezing. Vital Signs Period Temp Pulse Resp BP Sys/Canela Pulse Ox Last 24 Hr 97.6 F-98.9 F 62-82 17-20 108-145/63-104 94-95 Gen: NAD at rest Heart: RRR Lung: bilateral rhonchi, wheezes Abd: soft, nontender Ext: no edema CBC, BMP 01/11/19 07:35 01/11/19 07:35 Active Medications Acetaminophen (Tylenol -) 650 mg PO Q4H PRN PRN Reason: PAIN LEVEL 1-5 Albuterol Sulfate (Ventolin 0.083% Nebulizer Soln -) 1 amp NEB RQID [facility] Last Admin: 01/11/19 08:00 Dose: 1 amp Artificial Tears (Artificial Tears) 1 drop OU Q6H PRN PRN Reason: DRY EYES Last Admin: 01/10/19 20:55 Dose: 1 drop Famotidine (Pepcid -) 40 mg PO DAILY [facility] Last Admin: 01/11/19 10:13 Dose: 40 mg Gabapentin (Neurontin -) 300 mg PO BID [facility] Last Admin: 01/11/19 10:09 Dose: 300 mg Heparin Sodium (Porcine) (Heparin -) 5,000 unit SQ BID [facility] Last Admin: 01/11/19 10:03 Dose: 5,000 unit Azithromycin (Zithromax 500mg Ivpb (Pre-Docked)) 500 mg in 250 mls @ 250 mls/ hr IVPB DAILY [facility] Stop: 01/14/19 10:59 Last Admin: 01/11/19 10:13 Dose: 250 mls/hr Ipratropium [place] (Atrovent 0.02% Nebulizer -) 1 amp NEB RQID [facility] Last Admin: 01/11/19 08:00 Dose: 1 amp Lamotrigine (Lamictal -) 100 mg PO DAILY [facility] Last Admin: 01/11/19 10:03 Dose: 100 mg Methylprednisolone Sodium Succinate (Solu-Medrol -) 40 mg IVPUSH Q8H-IV [facility] Last Admin: 01/11/19 10:13 Dose: 40 mg Montelukast Sodium (Singulair -) 10 mg PO HS [facility] Last Admin: 01/11/19 00:16 Dose: 10 mg Non-Formulary Medication (Topiramate [Trokendi Xr]) 100 mg PO BID [facility] Primidone (Mysoline -) 100 mg PO HS [facility] Last Admin: 01/11/19 00:15 Dose: 100 mg Propranolol HCl (Inderal La -) 60 mg PO DAILY [facility] Last Admin: 01/11/19 10:03 Dose: 60 mg Trazodone HCl (Desyrel -) 100 mg PO BID [facility] Last Admin: 01/11/19 10:09 Dose: 100 mg Varenicline (Chantix -) 1 mg PO BID [facility] Last Admin: 01/11/19 10:12 Dose: 1 mg A/P Acute COPD Exacerbation Bipolar Disorder Former Smoker - continue medrol at current dose - inhaled bronchodilators standing and PRN - O2 to keep SpO2 >90% - singulair - azithromycin - DVT prophylaxis - outpt PFTs Problem List - Problems (1) Acute exacerbation of COPD with asthma Code(s): J44.1 - CHRONIC OBSTRUCTIVE PULMONARY DISEASE W (ACUTE) EXACERBATION; J45.901 - UNSPECIFIED ASTHMA WITH (ACUTE) EXACERBATION
--- NOTE | 2019-01-11 15:42 | PN ---
Progress Note, Physician Chief Complaint: patient seen and examined said he had to use his rescue inhaler twice today says he still has coughing - Current Medication List Current Medications: Active Medications Acetaminophen (Tylenol -) 650 mg PO Q4H PRN PRN Reason: PAIN LEVEL 1-5 Albuterol Sulfate (Ventolin 0.083% Nebulizer Soln -) 1 amp NEB RQID [facility] Last Admin: 01/11/19 12:00 Dose: 1 amp Artificial Tears (Artificial Tears) 1 drop OU Q6H PRN PRN Reason: DRY EYES Last Admin: 01/10/19 20:55 Dose: 1 drop Famotidine (Pepcid -) 40 mg PO DAILY [facility] Last Admin: 01/11/19 10:13 Dose: 40 mg Gabapentin (Neurontin -) 300 mg PO BID [facility] Last Admin: 01/11/19 10:09 Dose: 300 mg Heparin Sodium (Porcine) (Heparin -) 5,000 unit SQ BID [facility] Last Admin: 01/11/19 10:03 Dose: 5,000 unit Azithromycin (Zithromax 500mg Ivpb (Pre-Docked)) 500 mg in 250 mls @ 250 mls/ hr IVPB DAILY [facility] Stop: 01/14/19 10:59 Last Admin: 01/11/19 10:13 Dose: 250 mls/hr Ipratropium [place] (Atrovent 0.02% Nebulizer -) 1 amp NEB RQID [facility] Last Admin: 01/11/19 12:00 Dose: 1 amp Lamotrigine (Lamictal -) 100 mg PO DAILY [facility] Last Admin: 01/11/19 10:03 Dose: 100 mg Methylprednisolone Sodium Succinate (Solu-Medrol -) 40 mg IVPUSH Q8H-IV [facility] Last Admin: 01/11/19 10:13 Dose: 40 mg Montelukast Sodium (Singulair -) 10 mg PO [facility] Last Admin: 01/11/19 00:16 Dose: 10 mg Non-Formulary Medication (Topiramate [Trokendi Xr]) 100 mg PO BID [facility] Primidone (Mysoline -) 100 mg PO HS [facility] Last Admin: 01/11/19 00:15 Dose: 100 mg Propranolol HCl (Inderal La -) 60 mg PO DAILY [facility] Last Admin: 01/11/19 10:03 Dose: 60 mg Trazodone HCl (Desyrel -) 100 mg PO BID [facility] Last Admin: 01/11/19 10:09 Dose: 100 mg Varenicline (Chantix -) 1 mg PO BID [facility] Last Admin: 01/11/19 10:12 Dose: 1 mg - Objective Vital Signs: Vital Signs Temperature 97.6 F 01/11/19 15:00 Pulse Rate 68 01/11/19 15:00 Respiratory Rate 20 01/11/19 15:00 Blood Pressure 138/86 01/11/19 15:00 O2 Sat by Pulse Oximetry (%) 95 01/11/19 08:48 Constitutional: Yes: Calm Cardiovascular: Yes: Regular Rate and Rhythm, S1 Respiratory: Yes: Rhonchi Gastrointestinal: Yes: Normal Bowel Sounds, Soft Edema: Yes Labs: CBC, BMP 01/11/19 07:35 01/11/19 07:35 INR, PTT INR 1.07 (0.83-1.09) 01/09/19 23:12 Problem List - Problems (1) Acute exacerbation of COPD with asthma Assessment/Plan: iv medrol oxygen nebulizers singulair dvt ppx Code(s): J44.1 - CHRONIC OBSTRUCTIVE PULMONARY DISEASE W (ACUTE) EXACERBATION; J45.901 - UNSPECIFIED ASTHMA WITH (ACUTE) EXACERBATION (2) Bipolar disorder Assessment/Plan: continue psych meds Code(s): F31.9 - BIPOLAR DISORDER, UNSPECIFIED
[2019-01-12] MEDS: methylPREDNISolone NA SUCC 40 MG/1 ML VIAL IVPUSH SCH ×3 (02:45→17:24)
[2019-01-12] MEDS: ALBUTEROL SO4 0.083% IH SOL 2.5 MG/3 ML VIAL.NEB. NEB SCH ×4 (08:15→20:30)
[2019-01-12] MEDS: IPRATROPIUM BR 0.02% 0.5 MG/2.5 ML VIAL.NEB. NEB SCH ×4 (08:15→20:30)
[2019-01-12 08:39] LABS: BASO % 0.1 % (0-2.0); HEMOGLOBIN 13.9 GM/dL (11.7-16.9); LYMPH % 14.7 % (8-40); MCH 32.1 pg (25.7-33.7); MCHC 33.1 g/dl (32.0-35.9); MEAN PLT VOLUME 9.2 fl (7.5-11.1); NEUT % 82.2 % (42.8-82.8); PLATELET COUNT 184 K/MM3 (134-434); RBC 4.33 M/mm3 (4.00-5.60); RDW 14.1 % (11.9-15.9); WHITE BLOOD COUNT 8.5 K/mm3 (4.0-10.0)
[2019-01-12 09:09] LABS: ALBUMIN 3.6 g/dl (3.4-5.0); BILIRUBIN,TOTAL 0.3 mg/dL (0.2-1); BLOOD UREA NITROGEN 18.6 mg/dL (7-18); CALCIUM 8.7 mg/dL (8.5-10.1); CREATININE 0.7 mg/dL (0.55-1.3); POTASSIUM 4.3 mmol/L (3.5-5.1)
[2019-01-12] MEDS ORDERED: PT OWN MED DRAWER 7, Y5N ONE ×3 (09:53→21:49)
[2019-01-12] MEDS: HEPARIN NA (PORCINE) 5,000 UNITS/ML 1ML VIAL SQ SCH ×2 (10:03→22:14)
[2019-01-12] MEDS: lamoTRIgine 100 MG TABLET (FP) PO SCH (10:03)
[2019-01-12] MEDS: traZODone HCL 100 MG TABLET (FP) PO SCH ×2 (10:03→22:13)
[2019-01-12] MEDS: GABAPENTIN 300 MG CAPSULE (FP) PO SCH ×2 (10:03→22:13)
[2019-01-12] MEDS: FAMOTIDINE 40 MG TABLET PO SCH (10:12)
[2019-01-12] MEDS: AZITHROMYCIN IVPB 500 MG/250 ML BAG IVPB SCH (10:13)
--- NOTE | 2019-01-12 12:24 | PN ---
Progress Note, Physician History of Present Illness: pulmonary alert,less dyspneic,less congested - Current Medication List Current Medications: Active Medications Acetaminophen (Tylenol -) 650 mg PO Q4H PRN PRN Reason: PAIN LEVEL 1-5 Albuterol Sulfate (Ventolin 0.083% Nebulizer Soln -) 1 amp NEB RQID [facility] Last Admin: 01/12/19 08:15 Dose: 1 amp Artificial Tears (Artificial Tears) 1 drop OU Q6H PRN PRN Reason: DRY EYES Last Admin: 01/10/19 20:55 Dose: 1 drop Famotidine (Pepcid -) 40 mg PO DAILY [facility] Last Admin: 01/12/19 10:12 Dose: 40 mg Gabapentin (Neurontin -) 300 mg PO BID [facility] Last Admin: 01/12/19 10:03 Dose: 300 mg Heparin Sodium (Porcine) (Heparin -) 5,000 unit SQ BID [facility] Last Admin: 01/12/19 10:03 Dose: 5,000 unit Azithromycin (Zithromax 500mg Ivpb (Pre-Docked)) 500 mg in 250 mls @ 250 mls/ hr IVPB DAILY [facility] Stop: 01/14/19 10:59 Last Admin: 01/12/19 10:13 Dose: 250 mls/hr Ipratropium [place] (Atrovent 0.02% Nebulizer -) 1 amp [facility] RQID [facility] Last Admin: 01/12/19 08:15 Dose: 1 amp Lamotrigine (Lamictal -) 100 mg PO DAILY [facility] Last Admin: 01/12/19 10:03 Dose: 100 mg Methylprednisolone Sodium Succinate (Solu-Medrol -) 40 mg IVPUSH Q8H-IV [facility] Last Admin: 01/12/19 10:13 Dose: 40 mg Montelukast Sodium (Singulair -) 10 mg PO HS [facility] Last Admin: 01/11/19 21:42 Dose: 10 mg Non-Formulary Medication (Topiramate [Trokendi Xr]) 100 mg PO BID [facility] Primidone (Mysoline -) 100 mg PO HS [facility] Last Admin: 01/11/19 21:42 Dose: 100 mg Propranolol HCl (Inderal La -) 60 mg PO DAILY [facility] Last Admin: 01/11/19 10:03 Dose: 60 mg Trazodone HCl (Desyrel -) 100 mg PO BID [facility] Last Admin: 01/12/19 10:03 Dose: 100 mg Varenicline (Chantix -) 1 mg PO BID [facility] Last Admin: 01/11/19 21:42 Dose: Not Given - Objective Vital Signs: Vital Signs Temperature 97.8 F 01/12/19 08:55 Pulse Rate 82 01/12/19 08:55 Respiratory Rate 18 01/12/19 08:55 Blood Pressure 146/97 01/12/19 08:55 O2 Sat by Pulse Oximetry (%) 96 01/12/19 08:55 Constitutional: Yes: Well Nourished, Calm Eyes: Yes: WNL HENT: Yes: WNL Neck: Yes: WNL Cardiovascular: Yes: Regular Rate and Rhythm, S1, S2 Respiratory: Yes: Wheezes (scattered silvano wheezes) Gastrointestinal: Yes: Normal Bowel Sounds, Soft, Abdomen, Obese Extremities: Yes: WNL Edema: No Labs: CBC, BMP 01/12/19 06:45 01/12/19 06:45 INR, PTT INR 1.07 (0.83-1.09) 01/09/19 23:12 Problem List - Problems (1) Obesity Code(s): E66.9 - OBESITY, UNSPECIFIED (2) Sleep apnea Code(s): G47.30 - SLEEP APNEA, UNSPECIFIED (3) COPD exacerbation Code(s): J44.1 - CHRONIC OBSTRUCTIVE PULMONARY DISEASE W (ACUTE) EXACERBATION Assessment/Plan A/P Acute COPD Exacerbation Bipolar Disorder Former Smoker OSAS - medrol at current dose - inhaled bronchodilators standing and PRN - O2 to keep SpO2 >90% - singulair - azithromycin - DVT prophylaxis - outpt PFTs Problem List - Problems (1) Acute exacerbation of COPD with asthma Code(s): J44.1 - CHRONIC OBSTRUCTIVE PULMONARY DISEASE W (ACUTE) EXACERBATION; J45.901 - UNSPECIFIED ASTHMA WITH (ACUTE) EXACERBATION
[2019-01-12] MEDS: VARENICLINE TARTRATE 1 MG TAB PO SCH ×2 (12:53→22:11)
--- NOTE | 2019-01-12 13:03 | PN ---
Progress Note, Physician Chief Complaint: patient feeling slightly better today coughing breathing better - Current Medication List Current Medications: Active Medications Acetaminophen (Tylenol -) 650 mg PO Q4H PRN PRN Reason: PAIN LEVEL 1-5 Albuterol Sulfate (Ventolin 0.083% Nebulizer Soln -) 1 amp NEB RQID [facility] Last Admin: 01/12/19 08:15 Dose: 1 amp Artificial Tears (Artificial Tears) 1 drop OU Q6H PRN PRN Reason: DRY EYES Last Admin: 01/10/19 20:55 Dose: 1 drop Famotidine (Pepcid -) 40 mg PO DAILY [facility] Last Admin: 01/12/19 10:12 Dose: 40 mg Gabapentin (Neurontin -) 300 mg PO BID [facility] Last Admin: 01/12/19 10:03 Dose: 300 mg Heparin Sodium (Porcine) (Heparin -) 5,000 unit SQ BID [facility] Last Admin: 01/12/19 10:03 Dose: 5,000 unit Azithromycin (Zithromax 500mg Ivpb (Pre-Docked)) 500 mg in 250 mls @ 250 mls/ hr IVPB DAILY [facility] Stop: 01/14/19 10:59 Last Admin: 01/12/19 10:13 Dose: 250 mls/hr Ipratropium [place] (Atrovent 0.02% Nebulizer -) 1 amp NEB RQID [facility] Last Admin: 01/12/19 08:15 Dose: 1 amp Lamotrigine (Lamictal -) 100 mg PO DAILY [facility] Last Admin: 01/12/19 10:03 Dose: 100 mg Methylprednisolone Sodium Succinate (Solu-Medrol -) 40 mg IVPUSH Q8H-IV [facility] Last Admin: 01/12/19 10:13 Dose: 40 mg Montelukast Sodium (Singulair -) 10 mg PO HS [facility] Last Admin: 01/11/19 21:42 Dose: 10 mg Non-Formulary Medication (Topiramate [Trokendi Xr]) 100 mg PO BID [facility] Primidone (Mysoline -) 100 mg PO HS [facility] Last Admin: 01/11/19 21:42 Dose: 100 mg Propranolol HCl (Inderal La -) 60 mg PO DAILY [facility] Last Admin: 01/12/19 10:54 Dose: 60 mg Trazodone HCl (Desyrel -) 100 mg PO BID [facility] Last Admin: 01/12/19 10:03 Dose: 100 mg Varenicline (Chantix -) 1 mg PO BID [facility] Last Admin: 01/12/19 12:53 Dose: Not Given - Objective Vital Signs: Vital Signs Temperature 97.8 F 01/12/19 08:55 Pulse Rate 82 01/12/19 08:55 Respiratory Rate 18 01/12/19 08:55 Blood Pressure 146/97 01/12/19 08:55 O2 Sat by Pulse Oximetry (%) 96 01/12/19 08:55 Constitutional: Yes: Calm Cardiovascular: Yes: S1, S2 Respiratory: Yes: Rhonchi, Wheezes Gastrointestinal: Yes: Normal Bowel Sounds, Soft Labs: CBC, BMP 01/12/19 06:45 01/12/19 06:45 INR, PTT INR 1.07 (0.83-1.09) 01/09/19 23:12 Problem List - Problems (1) Acute exacerbation of COPD with asthma Assessment/Plan: iv medrol same dose oxygen nebulizers singulair dvt ppx iv abx Code(s): J44.1 - CHRONIC OBSTRUCTIVE PULMONARY DISEASE W (ACUTE) EXACERBATION; J45.901 - UNSPECIFIED ASTHMA WITH (ACUTE) EXACERBATION (2) Bipolar disorder Assessment/Plan: continue psych meds Code(s): F31.9 - BIPOLAR DISORDER, UNSPECIFIED
[2019-01-12] MEDS: MONTELUKAST NA 10 MG TABLET PO SCH (22:13)
[2019-01-12] MEDS: PRIMIDONE 50 MG TABLET PO SCH (22:13)
[2019-01-13] MEDS: methylPREDNISolone NA SUCC 40 MG/1 ML VIAL IVPUSH SCH ×3 (01:55→19:01)
[2019-01-13] MEDS: IPRATROPIUM BR 0.02% 0.5 MG/2.5 ML VIAL.NEB. NEB SCH ×4 (08:23→20:25)
[2019-01-13] MEDS: ALBUTEROL SO4 0.083% IH SOL 2.5 MG/3 ML VIAL.NEB. NEB SCH ×4 (08:24→20:25)
--- NOTE | 2019-01-13 09:07 | PN ---
Progress Note, Physician Chief Complaint: COPD exacerbation Bipolar disorder History of Present Illness: NAD SOB on exertion - Current Medication List Current Medications: Active Medications Acetaminophen (Tylenol -) 650 mg PO Q4H PRN PRN Reason: PAIN LEVEL 1-5 Albuterol Sulfate (Ventolin 0.083% Nebulizer Soln -) 1 amp NEB RQID [facility] Last Admin: 01/13/19 08:24 Dose: 1 amp Artificial Tears (Artificial Tears) 1 drop OU Q6H PRN PRN Reason: DRY EYES Last Admin: 01/10/19 20:55 Dose: 1 drop Famotidine (Pepcid -) 40 mg PO DAILY [facility] Last Admin: 01/12/19 10:12 Dose: 40 mg Gabapentin (Neurontin -) 300 mg PO BID [facility] Last Admin: 01/12/19 22:13 Dose: 300 mg Heparin Sodium (Porcine) (Heparin -) 5,000 unit SQ BID [facility] Last Admin: 01/12/19 22:14 Dose: 5,000 unit Azithromycin (Zithromax 500mg Ivpb (Pre-Docked)) 500 mg in 250 mls @ 250 mls/ hr IVPB DAILY [facility] Stop: 01/14/19 10:59 Last Admin: 01/12/19 10:13 Dose: 250 mls/hr Ipratropium [place] (Atrovent 0.02% Nebulizer -) 1 amp NEB RQID [facility] Last Admin: 01/13/19 08:23 Dose: 1 amp Lamotrigine (Lamictal -) 100 mg PO DAILY [facility] Last Admin: 01/12/19 10:03 Dose: 100 mg Methylprednisolone Sodium Succinate (Solu-Medrol -) 40 mg IVPUSH Q8H-IV [facility] Last Admin: 01/13/19 01:55 Dose: 40 mg Montelukast Sodium (Singulair -) 10 mg PO HS [facility] Last Admin: 01/12/19 22:13 Dose: 10 mg Non-Formulary Medication (Topiramate [Trokendi Xr]) 100 mg PO BID [facility] Primidone (Mysoline -) 100 mg PO HS [facility] Last Admin: 01/12/19 22:13 Dose: 100 mg Propranolol HCl (Inderal La -) 60 mg PO DAILY [facility] Last Admin: 01/12/19 10:54 Dose: 60 mg Trazodone HCl (Desyrel -) 100 mg PO BID [facility] Last Admin: 01/12/19 22:13 Dose: 100 mg Varenicline (Chantix -) 1 mg PO BID [facility] Last Admin: 01/12/19 22:11 Dose: Not Given - Objective Vital Signs: Vital Signs Temperature 97.8 F 01/13/19 06:00 Pulse Rate 61 01/13/19 06:00 Respiratory Rate 18 01/13/19 06:00 Blood Pressure 142/77 01/13/19 06:00 O2 Sat by Pulse Oximetry (%) 94 L 01/12/19 20:29 Constitutional: Yes: Well Nourished, No Distress, Calm, Obese Cardiovascular: Yes: Regular Rate and Rhythm Respiratory: Yes: Regular, On Nasal O2, SOB on Exertion Gastrointestinal: Yes: Normal Bowel Sounds, Soft, Abdomen, Obese Genitourinary: Yes: WNL Musculoskeletal: Yes: WNL Extremities: Yes: WNL Edema: No Peripheral Pulses WNL: Yes Neurological: Yes: Alert, Oriented Psychiatric: Yes: Alert, Oriented Labs: CBC, BMP 01/12/19 06:45 01/12/19 06:45 INR, PTT INR 1.07 (0.83-1.09) 01/09/19 23:12 Problem List - Problems (1) Acute exacerbation of COPD with asthma Assessment/Plan: -continue medrol at current dose -inhaled bronchodilators standing and PRN -Nasal O2 to keep SpO2 >90% -singulair -azithromycin -DVT prophylaxis -outpt PFTs -Pulmonary on board Problems reviewed: Yes Code(s): J44.1 - CHRONIC OBSTRUCTIVE PULMONARY DISEASE W (ACUTE) EXACERBATION; J45.901 - UNSPECIFIED ASTHMA WITH (ACUTE) EXACERBATION (2) Bipolar disorder Assessment/Plan: -Continue home meds Problems reviewed: Yes Code(s): F31.9 - BIPOLAR DISORDER, UNSPECIFIED Assessment/Plan see problem list
[2019-01-13] MEDS ORDERED: PT OWN MED DRAWER 7, Y5N ONE ×2 (10:34→21:26)
[2019-01-13] MEDS: HEPARIN NA (PORCINE) 5,000 UNITS/ML 1ML VIAL SQ SCH ×2 (10:37→22:52)
[2019-01-13] MEDS: GABAPENTIN 300 MG CAPSULE (FP) PO SCH ×2 (10:37→22:54)
[2019-01-13] MEDS: lamoTRIgine 100 MG TABLET (FP) PO SCH (10:37)
[2019-01-13] MEDS: traZODone HCL 100 MG TABLET (FP) PO SCH ×2 (10:38→22:55)
[2019-01-13] MEDS: VARENICLINE TARTRATE 1 MG TAB PO SCH ×3 (10:39→22:52)
[2019-01-13] MEDS: FAMOTIDINE 40 MG TABLET PO SCH (10:39)
[2019-01-13] MEDS: AZITHROMYCIN IVPB 500 MG/250 ML BAG IVPB SCH (10:41)
--- NOTE | 2019-01-13 11:19 | PN ---
Progress Note (short form) - Note Progress Note: PULMONARY Breathing slightly better. +cough and still wheezing. Vital Signs Period Temp Pulse Resp BP Sys/Canela Pulse Ox Last 24 Hr 97.7 F-98.6 F 61-71 18-18 121-142/73-80 94 Gen: NAD at rest Heart: RRR Lung: bilateral rhonchi, wheezes Abd: soft, nontender Ext: no edema CBC, BMP 01/12/19 06:45 01/12/19 06:45 Active Medications Acetaminophen (Tylenol -) 650 mg PO Q4H PRN PRN Reason: PAIN LEVEL 1-5 Albuterol Sulfate (Ventolin 0.083% Nebulizer Soln -) 1 amp NEB RQID [facility] Last Admin: 01/13/19 08:24 Dose: 1 amp Artificial Tears (Artificial Tears) 1 drop OU Q6H PRN PRN Reason: DRY EYES Last Admin: 01/10/19 20:55 Dose: 1 drop Famotidine (Pepcid -) 40 mg PO DAILY [facility] Last Admin: 01/13/19 10:39 Dose: 40 mg Gabapentin (Neurontin -) 300 mg PO BID [facility] Last Admin: 01/13/19 10:37 Dose: 300 mg Heparin Sodium (Porcine) (Heparin -) 5,000 unit SQ BID [facility] Last Admin: 01/13/19 10:37 Dose: 5,000 unit Azithromycin (Zithromax 500mg Ivpb (Pre-Docked)) 500 mg in 250 mls @ 250 mls/ hr IVPB DAILY [facility] Stop: 01/14/19 10:59 Last Admin: 01/13/19 10:41 Dose: 250 mls/hr Ipratropium [place] (Atrovent 0.02% Nebulizer -) 1 amp NEB RQID [facility] Last Admin: 01/13/19 08:23 Dose: 1 amp Lamotrigine (Lamictal -) 100 mg PO DAILY [facility] Last Admin: 01/13/19 10:37 Dose: 100 mg Methylprednisolone Sodium Succinate (Solu-Medrol -) 40 mg IVPUSH Q8H-IV [facility] Last Admin: 01/13/19 10:37 Dose: 40 mg Montelukast Sodium (Singulair -) 10 mg PO HS [facility] Last Admin: 01/12/19 22:13 Dose: 10 mg Non-Formulary Medication (Topiramate [Trokendi Xr]) 100 mg PO BID [facility] Primidone (Mysoline -) 100 mg PO HS [facility] Last Admin: 01/12/19 22:13 Dose: 100 mg Propranolol HCl (Inderal La -) 60 mg PO DAILY [facility] Last Admin: 01/13/19 10:38 Dose: 60 mg Trazodone HCl (Desyrel -) 100 mg PO BID [facility] Last Admin: 01/13/19 10:38 Dose: 100 mg Varenicline (Chantix -) 1 mg PO BID [facility] Last Admin: 01/13/19 10:44 Dose: Not Given A/P Acute COPD Exacerbation Bipolar Disorder Former Smoker - continue medrol at current dose - inhaled bronchodilators standing and PRN - O2 to keep SpO2 >90% - singulair - azithromycin - DVT prophylaxis - outpt PFTs Problem List - Problems (1) Acute exacerbation of COPD with asthma Code(s): J44.1 - CHRONIC OBSTRUCTIVE PULMONARY DISEASE W (ACUTE) EXACERBATION; J45.901 - UNSPECIFIED ASTHMA WITH (ACUTE) EXACERBATION
[2019-01-13] MEDS: PRIMIDONE 50 MG TABLET PO SCH (22:52)
[2019-01-13] MEDS: MONTELUKAST NA 10 MG TABLET PO SCH (22:53)
[2019-01-13] MEDS: ARTIFICIAL TEARS (POLYVINYL ALCOHOL) OPTH DROPS OU PRN (22:55)
[2019-01-14] MEDS: methylPREDNISolone NA SUCC 40 MG/1 ML VIAL IVPUSH SCH ×3 (01:55→19:05)
[2019-01-14] MEDS ORDERED: PT OWN MED DRAWER 7, Y5N ONE ×2 (06:18→20:25)
[2019-01-14] MEDS: ALBUTEROL SO4 0.083% IH SOL 2.5 MG/3 ML VIAL.NEB. NEB SCH ×4 (08:10→20:20)
[2019-01-14] MEDS: IPRATROPIUM BR 0.02% 0.5 MG/2.5 ML VIAL.NEB. NEB SCH ×4 (08:10→20:20)
[2019-01-14] MEDS: VARENICLINE TARTRATE 1 MG TAB PO SCH ×2 (10:06→21:09)
[2019-01-14] MEDS: traZODone HCL 100 MG TABLET (FP) PO SCH (10:08)
[2019-01-14] MEDS: HEPARIN NA (PORCINE) 5,000 UNITS/ML 1ML VIAL SQ SCH ×2 (10:14→21:11)
[2019-01-14] MEDS: lamoTRIgine 100 MG TABLET (FP) PO SCH (10:14)
[2019-01-14] MEDS: GABAPENTIN 300 MG CAPSULE (FP) PO SCH ×2 (10:14→21:11)
--- NOTE | 2019-01-14 10:15 | PN ---
Progress Note, Physician Chief Complaint: COPD exacerbation Bipolar disorder History of Present Illness: NAD SOB on exertion - Current Medication List Current Medications: Active Medications Acetaminophen (Tylenol -) 650 mg PO Q4H PRN PRN Reason: PAIN LEVEL 1-5 Albuterol Sulfate (Ventolin 0.083% Nebulizer Soln -) 1 amp NEB RQID [facility] Last Admin: 01/14/19 08:10 Dose: 1 amp Artificial Tears (Artificial Tears) 1 drop OU Q6H PRN PRN Reason: DRY EYES Last Admin: 01/13/19 22:55 Dose: 1 drop Famotidine (Pepcid -) 40 mg PO DAILY [facility] Last Admin: 01/13/19 10:39 Dose: 40 mg Gabapentin (Neurontin -) 300 mg PO BID [facility] Last Admin: 01/13/19 22:54 Dose: 300 mg Heparin Sodium (Porcine) (Heparin -) 5,000 unit SQ BID [facility] Last Admin: 01/13/19 22:52 Dose: 5,000 unit Azithromycin (Zithromax 500mg Ivpb (Pre-Docked)) 500 mg in 250 mls @ 250 mls/ hr IVPB DAILY [facility] Stop: 01/14/19 10:59 Last Admin: 01/13/19 10:41 Dose: 250 mls/hr Ipratropium [place] (Atrovent 0.02% Nebulizer -) 1 amp NEB RQID [facility] Last Admin: 01/14/19 08:10 Dose: 1 amp Lamotrigine (Lamictal -) 100 mg PO DAILY [facility] Last Admin: 01/13/19 10:37 Dose: 100 mg Methylprednisolone Sodium Succinate (Solu-Medrol -) 40 mg IVPUSH Q8H-IV [facility] Last Admin: 01/14/19 01:55 Dose: 40 mg Montelukast Sodium (Singulair -) 10 mg PO HS [facility] Last Admin: 01/13/19 22:53 Dose: 10 mg Non-Formulary Medication (Topiramate [Trokendi Xr]) 100 mg PO BID [facility] Primidone (Mysoline -) 100 mg PO HS [facility] Last Admin: 01/13/19 22:52 Dose: 100 mg Propranolol HCl (Inderal La -) 60 mg PO DAILY [facility] Last Admin: 01/13/19 10:38 Dose: 60 mg Trazodone HCl (Desyrel -) 100 mg PO BID [facility] Last Admin: 01/13/19 22:55 Dose: 100 mg Varenicline (Chantix -) 1 mg PO BID [facility] Last Admin: 01/13/19 22:52 Dose: Not Given - Objective Vital Signs: Vital Signs Temperature 98.4 F 01/14/19 06:00 Pulse Rate 63 01/14/19 06:00 Respiratory Rate 18 01/14/19 06:00 Blood Pressure 152/86 01/14/19 06:00 O2 Sat by Pulse Oximetry (%) 94 L 01/13/19 21:00 Constitutional: Yes: Well Nourished, No Distress, Calm Cardiovascular: Yes: Regular Rate and Rhythm Respiratory: Yes: Regular, SOB on Exertion, Wheezes (RML) Gastrointestinal: Yes: Normal Bowel Sounds, Soft, Abdomen, Obese Genitourinary: Yes: WNL Musculoskeletal: Yes: WNL Extremities: Yes: WNL Edema: No Peripheral Pulses WNL: Yes Neurological: Yes: Alert, Oriented Psychiatric: Yes: Alert, Oriented Labs: CBC, BMP 01/12/19 06:45 01/12/19 06:45 INR, PTT INR 1.07 (0.83-1.09) 01/09/19 23:12 Problem List - Problems (1) Acute exacerbation of COPD with asthma Assessment/Plan: -continue medrol at current dose -inhaled bronchodilators standing and PRN -Nasal O2 to keep SpO2 >90% -singulair -azithromycin -DVT prophylaxis -outpt PFTs -Pulmonary on board Problems reviewed: Yes Code(s): J44.1 - CHRONIC OBSTRUCTIVE PULMONARY DISEASE W (ACUTE) EXACERBATION; J45.901 - UNSPECIFIED ASTHMA WITH (ACUTE) EXACERBATION (2) Bipolar disorder Assessment/Plan: -Continue home meds Problems reviewed: Yes Code(s): F31.9 - BIPOLAR DISORDER, UNSPECIFIED Assessment/Plan see problem list
[2019-01-14] MEDS: FAMOTIDINE 40 MG TABLET PO SCH (10:17)
[2019-01-14] MEDS: AZITHROMYCIN IVPB 500 MG/250 ML BAG IVPB SCH (10:18)
--- NOTE | 2019-01-14 11:48 | PN ---
Progress Note (short form) - Note Progress Note: PULMONARY Breathing continues to improve. Less cough and wheezing. Vital Signs Period Temp Pulse Resp BP Sys/Canela Pulse Ox Last 24 Hr 97.5 F-98.4 F 52-75 18-20 131-152/51-86 94 Gen: NAD at rest Heart: RRR Lung: scattered rhonchi Abd: soft, nontender Ext: no edema CBC, BMP 01/12/19 06:45 01/12/19 06:45 Active Medications Acetaminophen (Tylenol -) 650 mg PO Q4H PRN PRN Reason: PAIN LEVEL 1-5 Albuterol Sulfate (Ventolin 0.083% Nebulizer Soln -) 1 amp NEB RQID [facility] Last Admin: 01/14/19 08:10 Dose: 1 amp Artificial Tears (Artificial Tears) 1 drop OU Q6H PRN PRN Reason: DRY EYES Last Admin: 01/13/19 22:55 Dose: 1 drop Famotidine (Pepcid -) 40 mg PO DAILY [facility] Last Admin: 01/14/19 10:17 Dose: 40 mg Gabapentin (Neurontin -) 300 mg PO BID [facility] Last Admin: 01/14/19 10:14 Dose: 300 mg Heparin Sodium (Porcine) (Heparin -) 5,000 unit SQ BID [facility] Last Admin: 01/14/19 10:14 Dose: 5,000 unit Ipratropium [place] (Atrovent 0.02% Nebulizer -) 1 amp NEB RQID [facility] Last Admin: 01/14/19 08:10 Dose: 1 amp Lamotrigine (Lamictal -) 100 mg PO DAILY [facility] Last Admin: 01/14/19 10:14 Dose: 100 mg Methylprednisolone Sodium Succinate (Solu-Medrol -) 40 mg IVPUSH Q8H-IV [facility] Last Admin: 01/14/19 10:18 Dose: 40 mg Montelukast Sodium (Singulair -) 10 mg PO HS [facility] Last Admin: 01/13/19 22:53 Dose: 10 mg Non-Formulary Medication (Topiramate [Trokendi Xr]) 100 mg PO BID [facility] Primidone (Mysoline -) 100 mg PO HS [facility] Last Admin: 01/13/19 22:52 Dose: 100 mg Propranolol HCl (Inderal La -) 60 mg PO DAILY [facility] Last Admin: 01/14/19 10:17 Dose: 60 mg Trazodone HCl (Desyrel -) 100 mg PO BID [facility] Last Admin: 01/14/19 10:08 Dose: Not Given Varenicline (Chantix -) 1 mg PO BID [facility] Last Admin: 01/14/19 10:06 Dose: Not Given A/P Acute COPD Exacerbation Bipolar Disorder Former Smoker - can change steroids to PO prednisone and taper as outpt - inhaled bronchodilators standing and PRN - O2 to keep SpO2 >90% - singulair - azithromycin - DVT prophylaxis - outpt PFTs Problem List - Problems (1) Acute exacerbation of COPD with asthma Code(s): J44.1 - CHRONIC OBSTRUCTIVE PULMONARY DISEASE W (ACUTE) EXACERBATION; J45.901 - UNSPECIFIED ASTHMA WITH (ACUTE) EXACERBATION
[2019-01-14] MEDS: MONTELUKAST NA 10 MG TABLET PO SCH (21:11)
[2019-01-14] MEDS: PRIMIDONE 50 MG TABLET PO SCH (21:11)
[2019-01-14] MEDS ORDERED: traZODone HCL 100 MG TABLET (FP) PO SCH (22:00)
[2019-01-15] MEDS: ALBUTEROL SO4 0.083% IH SOL 2.5 MG/3 ML VIAL.NEB. NEB SCH (08:00)
[2019-01-15] MEDS: IPRATROPIUM BR 0.02% 0.5 MG/2.5 ML VIAL.NEB. NEB SCH ×2 (08:00→11:56)
[2019-01-15] MEDS ORDERED: PT OWN MED DRAWER 7, Y5N ONE (09:07)
[2019-01-15] MEDS: lamoTRIgine 100 MG TABLET (FP) PO SCH (09:21)
[2019-01-15] MEDS: GABAPENTIN 300 MG CAPSULE (FP) PO SCH (09:21)
[2019-01-15] MEDS: HEPARIN NA (PORCINE) 5,000 UNITS/ML 1ML VIAL SQ SCH (09:22)
[2019-01-15] MEDS: FAMOTIDINE 40 MG TABLET PO SCH (09:23)
[2019-01-15] MEDS ORDERED: predniSONE 20 MG TABLET (UD) PO SCH (10:00)
[2019-01-15 10:30] VITALS: BP 148/95; PULSE 64; TEMP 97.7
[2019-01-15] MEDS: VARENICLINE TARTRATE 1 MG TAB PO SCH (10:55)
--- NOTE | 2019-01-15 11:13 | PN ---
Progress Note (short form) - Note Progress Note: Breathing continues to improve. Less cough and wheezing. Intake & Output 01/12/19 01/13/19 01/14/19 01/15/19 23:59 23:59 23:59 23:59 Intake Total 1570 1670 1170 0 Balance 1570 1670 1170 0 Last Vital Signs Temp Pulse Resp BP Pulse Ox 97.7 F 64 20 148/95 95 01/15/19 10:00 01/15/19 10:00 01/15/19 10:00 01/15/19 10:00 01/15/19 08:43 Active Medications Acetaminophen (Tylenol -) 650 mg PO Q4H PRN PRN Reason: PAIN LEVEL 1-5 Albuterol Sulfate (Ventolin 0.083% Nebulizer Soln -) 1 amp NEB RQID [facility] Last Admin: 01/15/19 08:00 Dose: 1 amp Artificial Tears (Artificial Tears) 1 drop OU Q6H PRN PRN Reason: DRY EYES Last Admin: 01/13/19 22:55 Dose: 1 drop Famotidine (Pepcid -) 40 mg PO DAILY [facility] Last Admin: 01/15/19 09:23 Dose: 40 mg Gabapentin (Neurontin -) 300 mg PO BID [facility] Last Admin: 01/15/19 09:21 Dose: 300 mg Heparin Sodium (Porcine) (Heparin -) 5,000 unit SQ BID [facility] Last Admin: 01/15/19 09:22 Dose: 5,000 unit Ipratropium [place] (Atrovent 0.02% Nebulizer -) 1 amp NEB RQID [facility] Last Admin: 01/15/19 08:00 Dose: 1 amp Lamotrigine (Lamictal -) 100 mg PO DAILY [facility] Last Admin: 01/15/19 09:21 Dose: 100 mg Montelukast Sodium (Singulair -) 10 mg PO [facility] Last Admin: 01/14/19 21:11 Dose: 10 mg Non-Formulary Medication (Topiramate [Trokendi Xr]) 100 mg PO BID [facility] Prednisone (Deltasone -) 40 mg PO BID [facility] Last Admin: 01/15/19 09:21 Dose: 40 mg Primidone (Mysoline -) 100 mg PO [facility] Last Admin: 01/14/19 21:11 Dose: 100 mg Propranolol HCl (Inderal La -) 60 mg PO DAILY [facility] Last Admin: 01/15/19 09:22 Dose: 60 mg Trazodone HCl (Desyrel -) 200 mg PO HS [facility] Last Admin: 01/14/19 21:10 Dose: 200 mg Varenicline (Chantix -) 1 mg PO BID [facility] Last Admin: 01/15/19 10:55 Dose: Not Given Gen: NAD at rest Heart: RRR Lung: scattered rhonchi, expiratory wheeze Abd: soft, nontender Ext: no edema Problem List - Problems (1) Acute exacerbation of COPD with asthma Code(s): J44.1 - CHRONIC OBSTRUCTIVE PULMONARY DISEASE W (ACUTE) EXACERBATION; J45.901 - UNSPECIFIED ASTHMA WITH (ACUTE) EXACERBATION A/P Acute COPD Exacerbation Bipolar Disorder Former Smoker [facility] on CPAP therapy - Prednisone taper - inhaled bronchodilators standing and PRN - O2 to keep SpO2 >90% - philipulair - Advised QHS use of CPAP at home - DVT prophylaxis - No Pulmonary contraindication for DC Dr Felix
--- NOTE | 2019-01-15 11:32 | DS ---
Physical Examination Vital Signs: Vital Signs Temperature 97.7 F 01/15/19 10:00 Pulse Rate 64 01/15/19 10:00 Respiratory Rate 20 01/15/19 10:00 Blood Pressure 148/95 01/15/19 10:00 O2 Sat by Pulse Oximetry (%) 95 01/15/19 08:43 Constitutional: Yes: Calm Cardiovascular: Yes: Regular Rate and Rhythm, S1, S2 Respiratory: Yes: Wheezes (expiratory) Gastrointestinal: Yes: Normal Bowel Sounds, Soft Neurological: Yes: Alert Labs: CBC, BMP 01/12/19 06:45 01/12/19 06:45 Discharge Summary Problems reviewed: Yes Reason For Visit: COPD-CHRONIC OBSTRUCTIVE LUNG DISEASE Current Active Problems Acute exacerbation of COPD with asthma (Acute) Bipolar disorder (Acute) Bipolar disorder current episode depressed (Acute) COPD - Chronic obstructive lung disease (Acute) Essential tremor (Acute) GERD (gastroesophageal reflux disease) (Acute) Hospital Course: 58 year old male with PMHx of COPD/asthma, essential tremors, and bipolar disorder was in the ED accompanying his mother when suddenly patient became diaphoretic, SOB, wheezing, complained of vertigo like sensation. As per patient , he gets intermittent SOB episodes, with chest tightness for about a month. He states he has a strong bleach like odor in his apartment for the past 2-3 months that worsens his shortness of breath. Patient states he went to urgent care last week was given antibiotics and steroids, and was to have a follow up there, patient denies fever and chills, but endorses non-productive cough. admitted with copd exacerbation on iv steroids Condition: Fair - Instructions Referrals: Richard Mcghee MD [Primary Care Provider] - Disposition: HOME - Home Medications Comprehensive Discharge Medication List: Ambulatory Orders Acetaminophen [Tylenol Extra Strength] 1,000 mg PO BID 01/09/19 Albuterol Sulfate [Proair Hfa] 8.5 gm IH BID 01/09/19 Famotidine [Pepcid -] 40 mg PO DAILY 01/09/19 Fluticasone/Salmeterol [Advair 250-50 Diskus] 1 each IH BID 01/09/19 Gabapentin [Neurontin -] 300 mg PO BID 01/09/19 Ipratropium/Albuterol Sulfate [Combivent Respimat Inhal [place]] 4 gm IH BID 01/09 Lamotrigine [Lamictal] 100 mg PO DAILY 01/09/19 Loratadine 10 mg PO DAILY 01/09/19 Montelukast Sodium [Singulair] 10 mg PO HS 01/09/19 Primidone [Mysoline -] 50 mg PO HS 01/09/19 Propranolol HCl 60 mg PO DAILY 01/09/19 Topiramate [Trokendi Xr] 100 mg PO BID 01/09/19 Trazodone HCl 200 mg PO HS 01/09/19
== END 2019-01-15 12:41 | disposition home or self-care (01) | DRG 140 ==
LOC: JER 21:45 → JERBED 01-10 04:05 → J5S 01-10 14:24
PROVIDERS: ADMIT Family Medicine; ATTEND Family Medicine
DX: J44.1 Chronic obstructive pulmonary disease with (acute) exacerbation (principal); Z87.891 Personal history of nicotine dependence; F31.30 Bipolar disorder, current episode depressed, mild or moderate severity, unspecified; R25.1 Tremor, unspecified; G47.33 Obstructive sleep apnea (adult) (pediatric); E66.9 Obesity, unspecified; Z68.41 Body mass index [BMI] 40.0-44.9, adult; R61 Generalized hyperhidrosis; R00.0 Tachycardia, unspecified; J45.901 Unspecified asthma with (acute) exacerbation
CPT/HCPCS: 36415; 71275-TC; 80053; 82550; 83735; 83880; 84484; 85025; 85027; 85379; 85610; 93005; 93010; 94640; 99285-25; J1644

== ENCOUNTER 2019-06-06 22:24 | Inpatient (IN) | payer OTHER ==
[2019-06-06] MEDS ORDERED: ALBUTEROL SO4 2.5/IPRATROPIUM 0.5 INH SOL 3 ML VIAL.NEB. NEB ONE ×5 (22:45→23:24)
[2019-06-06] MEDS: ALBUTEROL SO4 2.5/IPRATROPIUM 0.5 INH SOL 3 ML VIAL.NEB. NEB SCH ×4 (22:56→23:33)
[2019-06-06 23:10] LABS: BASO % 0.4 % (0-2.0); EOS % 1.2 % (0-4.5); HEMATOCRIT 44.8 % (35.4-49); HEMOGLOBIN 14.8 GM/dL (11.7-16.9); LYMPH % 26.5 % (8-40); MCH 30.6 pg (25.7-33.7); MEAN CELL VOLUME 92.8 fl (80-96); MEAN PLT VOLUME 8.7 fl (7.5-11.1); MONO % 7.4 % (3.8-10.2); NEUT % 64.5 % (42.8-82.8); PLATELET COUNT 187 K/MM3 (134-434); RBC 4.83 M/mm3 (4.00-5.60); RDW 14.5 % (11.9-15.9); WHITE BLOOD COUNT 6.9 K/mm3 (4.0-10.0)
[2019-06-06] MEDS ORDERED: methylPREDNISolone NA SUCC 125 MG/2 ML VIAL IVPB ONE (23:23)
[2019-06-06] MEDS ORDERED: ACETAMINOPHEN 1000 MG/100 ML VIAL (NON FORMULARY) IVPB ONE (23:23)
[2019-06-06] MEDS ORDERED: methylPREDNISolone NA SUCC 125 MG/2 ML VIAL ONE (23:24)
[2019-06-06] MEDS ORDERED: ACETAMINOPHEN INJECTION 100 ML IVPB ONE (23:24)
[2019-06-06] MEDS ORDERED: ALBUTEROL SO4 0.5 % INH SOLN 2.5 MG/0.5 ML VIAL.NEB. NEB ONE (23:32)
[2019-06-06 23:47] LABS: ALBUMIN 3.8 g/dl (3.4-5.0); ALK PHOS 55 U/L (45-117); ANION GAP 7 MMOL/L (8-16); BILIRUBIN,TOTAL 0.4 mg/dL (0.2-1); BLOOD UREA NITROGEN 17.8 mg/dL (7-18); CHLORIDE 104 mmol/L (98-107); CO2 27 mmol/L (21-32); GLUCOSE,RANDOM 89 mg/dL (74-106); POTASSIUM 4.4 mmol/L (3.5-5.1); SGOT/AST 15 U/L (15-37); SGPT/ALT 23 U/L (13-61); SODIUM 138 mmol/L (136-145); TOT PROT 7.5 g/dl (6.4-8.2)
[2019-06-07] MEDS ORDERED: MAGNESIUM SULF 50% (8.12 MEQ/2 ML-1 GM VIAL) IVPB ONE (00:19)
[2019-06-07] MEDS ORDERED: ALBUTEROL SO4 0.083% IH SOL 2.5 MG/3 ML VIAL.NEB. NEB ONE (00:34)
[2019-06-07] MEDS ORDERED: MAGNESIUM SULF 50% (8.12 MEQ/2 ML-1 GM VIAL) ONE (00:35)
[2019-06-07] MEDS ORDERED: ALBUTEROL SO4 HFA INHALER IH PRN (02:15)
[2019-06-07] MEDS ORDERED: ALBUTEROL SO4 0.083% IH SOL 2.5 MG/3 ML VIAL.NEB. NEB PRN (02:25)
[2019-06-07] MEDS ORDERED: methylPREDNISolone NA SUCC 40 MG/1 ML VIAL ONE (04:11)
[2019-06-07] MEDS ORDERED: AZITHROMYCIN IVPB 500 MG/250 ML BAG IVPB ONE (04:11)
[2019-06-07] MEDS: methylPREDNISolone NA SUCC 125 MG/2 ML VIAL IVPB SCH ×3 (04:18→18:23)
[2019-06-07] MEDS: AZITHROMYCIN IVPB 500 MG/250 ML BAG IVPB SCH (04:19)
[2019-06-07 06:02] VITALS: BMI 43.5
[2019-06-07] MEDS: HEPARIN NA (PORCINE) 5,000 UNITS/ML 1ML VIAL SQ SCH ×3 (06:47→22:04)
[2019-06-07] MEDS: ALBUTEROL SO4 2.5/IPRATROPIUM 0.5 INH SOL 3 ML VIAL.NEB. NEB SCH ×4 (07:35→20:13)
[2019-06-07 08:32] LABS: BASO % 0.2 % (0-2.0); EOS % 0.2 % (0-4.5); HEMATOCRIT 42.5 % (35.4-49); HEMOGLOBIN 14.2 GM/dL (11.7-16.9); LYMPH % 12.1 % (8-40); MCH 30.8 pg (25.7-33.7); MCHC 33.4 g/dl (32.0-35.9); MEAN CELL VOLUME 92.2 fl (80-96); MEAN PLT VOLUME 8.4 fl (7.5-11.1); MONO % 0.7 % (3.8-10.2); NEUT % 86.8 % (42.8-82.8); PLATELET COUNT 184 K/MM3 (134-434); RBC 4.61 M/mm3 (4.00-5.60); RDW 14.1 % (11.9-15.9); WHITE BLOOD COUNT 4.6 K/mm3 (4.0-10.0)
[2019-06-07 09:00] LABS: ALBUMIN 3.8 g/dl (3.4-5.0); BILIRUBIN,TOTAL 0.4 mg/dL (0.2-1); BLOOD UREA NITROGEN 19.3 mg/dL (7-18); CREATININE 0.8 mg/dL (0.55-1.3); PHOSPHOROUS 4.1 mg/dL (2.5-4.9); POTASSIUM 4.8 mmol/L (3.5-5.1); TOT PROT 7.6 g/dl (6.4-8.2)
[2019-06-07] MEDS ORDERED: methylPREDNISolone NA SUCC 125 MG/2 ML VIAL IVPB SCH (10:00)
[2019-06-07] MEDS ORDERED: PATIENT'S OWN MEDICATION (NON-FORMULARY) (Ipratropium/Albuterol Sulfate [Combivent Respima IH SCH (14:00)
[2019-06-07] MEDS ORDERED: ALBUTEROL SO4 HFA INHALER IH SCH (14:00)
[2019-06-07] MEDS ORDERED: PATIENT'S OWN MEDICATION (NON-FORMULARY) (Fluticasone Propion/Salmeterol [Fluticasone-Salm IH SCH (22:00)
[2019-06-07] MEDS: traZODone HCL 100 MG TABLET (FP) PO SCH (22:04)
[2019-06-07] MEDS: MONTELUKAST NA 10 MG TABLET PO SCH (22:05)
[2019-06-07] MEDS: GABAPENTIN 300 MG CAPSULE PO SCH (22:05)
[2019-06-08] MEDS: methylPREDNISolone NA SUCC 125 MG/2 ML VIAL IVPB SCH (01:48)
[2019-06-08] MEDS: HEPARIN NA (PORCINE) 5,000 UNITS/ML 1ML VIAL SQ SCH ×3 (05:47→21:50)
[2019-06-08] MEDS: ALBUTEROL SO4 2.5/IPRATROPIUM 0.5 INH SOL 3 ML VIAL.NEB. NEB SCH ×4 (07:35→20:45)
[2019-06-08 07:46] LABS: BLOOD UREA NITROGEN 16.3 mg/dL (7-18); CALCIUM 8.9 mg/dL (8.5-10.1); CREATININE 0.7 mg/dL (0.55-1.3); POTASSIUM 5.2 mmol/L (3.5-5.1)
[2019-06-08] MEDS ORDERED: PT OWN MED DRAWER 7, Y5N ONE (10:34)
[2019-06-08] MEDS: lamoTRIgine 100 MG TABLET PO SCH (10:57)
[2019-06-08] MEDS: LORATADINE 10 MG TABLET PO SCH (10:57)
[2019-06-08] MEDS: GABAPENTIN 300 MG CAPSULE PO SCH ×2 (10:57→21:47)
[2019-06-08] MEDS: FAMOTIDINE 40 MG TABLET PO SCH (10:58)
[2019-06-08] MEDS: methylPREDNISolone NA SUCC 40 MG/1 ML VIAL IVPB SCH ×2 (10:58→17:33)
[2019-06-08] MEDS: AZITHROMYCIN IVPB 500 MG/250 ML BAG IVPB SCH (10:59)
[2019-06-08] MEDS: POLYETHYLENE GLYCOL 3350 119 GM BTL PO SCH (14:51)
[2019-06-08] MEDS: DOCUSATE SODIUM 100 MG CAPSULE (FP) PO SCH (14:51)
[2019-06-08 16:01] LABS: CALCIUM 9.1 mg/dL (8.5-10.1); CREATININE 0.6 mg/dL (0.55-1.3); POTASSIUM 4.8 mmol/L (3.5-5.1)
[2019-06-08] MEDS: MONTELUKAST NA 10 MG TABLET PO SCH (21:48)
[2019-06-08] MEDS: traZODone HCL 100 MG TABLET (FP) PO SCH (21:50)
[2019-06-09] MEDS: methylPREDNISolone NA SUCC 40 MG/1 ML VIAL IVPB SCH ×3 (02:38→17:39)
[2019-06-09] MEDS: HEPARIN NA (PORCINE) 5,000 UNITS/ML 1ML VIAL SQ SCH ×3 (05:54→21:34)
[2019-06-09] MEDS: ALBUTEROL SO4 2.5/IPRATROPIUM 0.5 INH SOL 3 ML VIAL.NEB. NEB SCH ×4 (07:35→20:35)
[2019-06-09] MEDS ORDERED: PT OWN MED DRAWER 7, Y5N ONE ×2 (08:52→21:13)
[2019-06-09] MEDS: FAMOTIDINE 40 MG TABLET PO SCH (09:01)
[2019-06-09] MEDS: DOCUSATE SODIUM 100 MG CAPSULE (FP) PO SCH (09:02)
[2019-06-09] MEDS: LORATADINE 10 MG TABLET PO SCH (09:02)
[2019-06-09] MEDS: GABAPENTIN 300 MG CAPSULE PO SCH ×2 (09:02→21:33)
[2019-06-09] MEDS: BUDESONIDE/FORMETEROL FUMARATE 80/4.5 mcg INHALER IH SCH ×2 (09:03→21:34)
[2019-06-09] MEDS: POLYETHYLENE GLYCOL 3350 119 GM BTL PO SCH (09:06)
[2019-06-09] MEDS: lamoTRIgine 100 MG TABLET PO SCH (09:07)
[2019-06-09 09:15] LABS: BLOOD UREA NITROGEN 19.7 mg/dL (7-18); CALCIUM 8.8 mg/dL (8.5-10.1); CREATININE 0.7 mg/dL (0.55-1.3); POTASSIUM 4.5 mmol/L (3.5-5.1)
[2019-06-09] MEDS: AZITHROMYCIN IVPB 500 MG/250 ML BAG IVPB SCH (09:57)
[2019-06-09] MEDS: traZODone HCL 100 MG TABLET (FP) PO SCH (21:33)
[2019-06-09] MEDS: MONTELUKAST NA 10 MG TABLET PO SCH (21:33)
[2019-06-09] MEDS: PRIMIDONE 50 MG TABLET PO SCH (21:34)
[2019-06-10] MEDS: methylPREDNISolone NA SUCC 40 MG/1 ML VIAL IVPB SCH ×4 (01:16→21:44)
[2019-06-10] MEDS: HEPARIN NA (PORCINE) 5,000 UNITS/ML 1ML VIAL SQ SCH ×3 (06:15→21:44)
[2019-06-10] MEDS ORDERED: ALBUTEROL SO4 HFA INHALER IH PRN ×2 (07:57→18:15)
[2019-06-10] MEDS: ALBUTEROL SO4 2.5/IPRATROPIUM 0.5 INH SOL 3 ML VIAL.NEB. NEB SCH (08:36)
[2019-06-10 09:15] LABS: BASO % 0.1 % (0-2.0); HEMATOCRIT 42.4 % (35.4-49); HEMOGLOBIN 14.1 GM/dL (11.7-16.9); LYMPH % 13.2 % (8-40); MCH 30.7 pg (25.7-33.7); MCHC 33.2 g/dl (32.0-35.9); MEAN CELL VOLUME 92.5 fl (80-96); MEAN PLT VOLUME 9.1 fl (7.5-11.1); MONO % 3.4 % (3.8-10.2); NEUT % 83.3 % (42.8-82.8); PLATELET COUNT 175 K/MM3 (134-434); RBC 4.59 M/mm3 (4.00-5.60); RDW 14.4 % (11.9-15.9); WHITE BLOOD COUNT 6.6 K/mm3 (4.0-10.0)
[2019-06-10 09:38] LABS: ALBUMIN 3.5 g/dl (3.4-5.0); BILIRUBIN,TOTAL 0.4 mg/dL (0.2-1); BLOOD UREA NITROGEN 21.1 mg/dL (7-18); CALCIUM 8.9 mg/dL (8.5-10.1); CREATININE 0.8 mg/dL (0.55-1.3); MAGNESIUM 2.4 mg/dL (1.8-2.4); PHOSPHOROUS 4.7 mg/dL (2.5-4.9); POTASSIUM 4.7 mmol/L (3.5-5.1); TOT PROT 6.9 g/dl (6.4-8.2)
[2019-06-10] MEDS ORDERED: PT OWN MED DRAWER 7, Y5N ONE ×2 (10:12→21:45)
[2019-06-10] MEDS: LORATADINE 10 MG TABLET PO SCH (10:35)
[2019-06-10] MEDS: DOCUSATE SODIUM 100 MG CAPSULE (FP) PO SCH (10:36)
[2019-06-10] MEDS: lamoTRIgine 100 MG TABLET PO SCH (10:36)
[2019-06-10] MEDS: POLYETHYLENE GLYCOL 3350 119 GM BTL PO SCH (10:37)
[2019-06-10] MEDS: GABAPENTIN 300 MG CAPSULE PO SCH ×2 (10:38→21:44)
[2019-06-10] MEDS: BUDESONIDE/FORMETEROL FUMARATE 80/4.5 mcg INHALER IH SCH ×2 (10:38→22:25)
[2019-06-10] MEDS: AZITHROMYCIN IVPB 500 MG/250 ML BAG IVPB SCH (10:39)
[2019-06-10] MEDS: FAMOTIDINE 40 MG TABLET PO SCH (10:46)
[2019-06-10] MEDS: FAMOTIDINE 20 MG TABLET PO SCH (10:51)
[2019-06-10] MEDS: MONTELUKAST NA 10 MG TABLET PO SCH (21:44)
[2019-06-10] MEDS: traZODone HCL 100 MG TABLET (FP) PO SCH (21:44)
[2019-06-10] MEDS: PRIMIDONE 50 MG TABLET PO SCH (22:07)
[2019-06-11] MEDS ORDERED: PT OWN MED DRAWER 7, Y5N ONE ×4 (03:49→20:56)
[2019-06-11] MEDS: HEPARIN NA (PORCINE) 5,000 UNITS/ML 1ML VIAL SQ SCH ×3 (05:43→21:05)
[2019-06-11] MEDS: lamoTRIgine 100 MG TABLET PO SCH (09:44)
[2019-06-11] MEDS: DOCUSATE SODIUM 100 MG CAPSULE (FP) PO SCH (09:44)
[2019-06-11] MEDS: POLYETHYLENE GLYCOL 3350 119 GM BTL PO SCH (09:44)
[2019-06-11] MEDS: GABAPENTIN 300 MG CAPSULE PO SCH ×2 (09:44→21:04)
[2019-06-11] MEDS: FAMOTIDINE 20 MG TABLET PO SCH (09:45)
[2019-06-11] MEDS: LORATADINE 10 MG TABLET PO SCH (09:45)
[2019-06-11] MEDS: AZITHROMYCIN IVPB 500 MG/250 ML BAG IVPB SCH (09:46)
[2019-06-11] MEDS: BUDESONIDE/FORMETEROL FUMARATE 80/4.5 mcg INHALER IH SCH ×2 (09:50→21:05)
[2019-06-11] MEDS: methylPREDNISolone NA SUCC 40 MG/1 ML VIAL IVPB SCH (11:47)
[2019-06-11] MEDS: TIOTROPIUM BROMIDE 2.5 MCG (SPIRIVA) RESPIMAT INHALER IH SCH (14:17)
[2019-06-11] MEDS: ALBUTEROL SO4 HFA INHALER IH SCH ×3 (14:17→21:05)
[2019-06-11] MEDS: traZODone HCL 100 MG TABLET (FP) PO SCH (21:04)
[2019-06-11] MEDS: MONTELUKAST NA 10 MG TABLET PO SCH (21:04)
[2019-06-11] MEDS: PRIMIDONE 50 MG TABLET PO SCH (21:04)
[2019-06-12] MEDS: HEPARIN NA (PORCINE) 5,000 UNITS/ML 1ML VIAL SQ SCH ×2 (05:36→13:23)
[2019-06-12] MEDS: ALBUTEROL SO4 HFA INHALER IH SCH ×3 (05:36→13:23)
[2019-06-12 06:20] VITALS: TEMP 97.8
[2019-06-12 09:43] VITALS: BP 129/68; PULSE 79
[2019-06-12] MEDS ORDERED: predniSONE 20 MG TABLET (UD) PO SCH (10:00)
[2019-06-12] MEDS ORDERED: PT OWN MED DRAWER 7, Y5N ONE (10:30)
[2019-06-12] MEDS: POLYETHYLENE GLYCOL 3350 119 GM BTL PO SCH (10:58)
[2019-06-12] MEDS: GABAPENTIN 300 MG CAPSULE PO SCH (10:58)
[2019-06-12] MEDS: FAMOTIDINE 20 MG TABLET PO SCH (10:58)
[2019-06-12] MEDS: LORATADINE 10 MG TABLET PO SCH (10:58)
[2019-06-12] MEDS: lamoTRIgine 100 MG TABLET PO SCH (10:58)
[2019-06-12] MEDS: DOCUSATE SODIUM 100 MG CAPSULE (FP) PO SCH (10:59)
[2019-06-12] MEDS: AZITHROMYCIN IVPB 500 MG/250 ML BAG IVPB SCH (11:00)
[2019-06-12] MEDS: TIOTROPIUM BROMIDE 2.5 MCG (SPIRIVA) RESPIMAT INHALER IH SCH (11:14)
[2019-06-12] MEDS: BUDESONIDE/FORMETEROL FUMARATE 80/4.5 mcg INHALER IH SCH (11:14)
== END 2019-06-12 16:07 | disposition home or self-care (01) | DRG 140 ==
LOC: JER 22:24 → JERBED 06-07 00:48 → J5S 06-07 05:19
PROVIDERS: ADMIT Internal Medicine
DX: J44.1 Chronic obstructive pulmonary disease with (acute) exacerbation (principal); E66.01 Morbid (severe) obesity due to excess calories; F31.9 Bipolar disorder, unspecified; G47.33 Obstructive sleep apnea (adult) (pediatric); Z68.41 Body mass index [BMI] 40.0-44.9, adult; F43.10 Post-traumatic stress disorder, unspecified; J96.01 Acute respiratory failure with hypoxia; I10 Essential (primary) hypertension; K21.9 Gastro-esophageal reflux disease without esophagitis; J20.9 Acute bronchitis, unspecified; J45.901 Unspecified asthma with (acute) exacerbation; E87.5 Hyperkalemia
CPT/HCPCS: 36415; 71045-TC-FY; 80048; 80053; 82550; 83036; 83735; 83880; 84100; 84443; 84484; 85025; 87798; 87804; 93005; 93010; 94640; 94660; 94761; 99285-25; J0131; J1644; U0002

== ENCOUNTER 2023-09-28 04:31 | Day surgery (SDC) | payer OTHER ==
[2023-09-21 10:56] VITALS: BMI 46.2
[2023-09-28] MEDS ORDERED: LIDOCAINE HCL/PF 2% SDV 5ML VIAL ONE (07:26)
[2023-09-28] MEDS ORDERED: LIDOCAINE HCL/PF 1% SDV 5ML VIAL ONE (07:26)
[2023-09-28] MEDS ORDERED: PHENYLEPHRINE/KETOROLAC 4 ML VIAL IO ONE (07:27)
[2023-09-28] MEDS ORDERED: BUPIVACAINE HCL/PF 0.75% 10 ML VIAL ONE (07:27)
[2023-09-28] MEDS ORDERED: ACETAMINOPHEN 325 MG TABLET (FP) PO PRN (07:40)
[2023-09-28] MEDS ORDERED: PHENYLEPHRINE 2.5% OPTHALMIC DROP 2ML BOTTLE ONE ×2 (07:55→08:14)
[2023-09-28] MEDS ORDERED: TROPICAMIDE 1% OPHTH SOLN 15 ML BOTTLE ONE (07:55)
[2023-09-28] MEDS: OFLOXACIN 0.3% OPHTHALMIC SOLUTION 5 ML BOTTLE OP SCH (08:04)
[2023-09-28] MEDS: CYCLOPENTOLATE HCL 1% OPHTH SOLN 2 ML BOTTLE OP SCH (08:04)
[2023-09-28] MEDS: KETOROLAC TROMETHAMINE 0.5% EYE DROP 1 DROP DROPS OP SCH (08:04)
[2023-09-28] MEDS: TROPICAMIDE 1% OPHTH SOLN 15 ML BOTTLE OP SCH (08:04)
[2023-09-28] MEDS: PHENYLEPHRINE 2.5% OPTHALMIC DROP 2ML BOTTLE OU SCH (08:05)
[2023-09-28] MEDS: PHENYLEPHRINE 2.5% OPHTH SOLN 15 ML BOTTLE OP SCH (08:05)
[2023-09-28 08:37] VITALS: BP 121/79; PULSE 88; RESP 16; TEMP 97.6
== END 2023-09-28 10:25 | disposition home or self-care (01) ==
LOC: JASU-SURG 04:31
PROVIDERS: ATTEND Ophthalmology
DX: Z53.8 Procedure and treatment not carried out for other reasons (principal)
CPT/HCPCS: J1097

== ENCOUNTER 2023-10-12 05:04 | Day surgery (SDC) | payer OTHER ==
[2023-10-10 12:30] VITALS: BMI 46.2
[2023-10-12] MEDS ORDERED: BUPIVACAINE HCL/PF 0.75% 10 ML VIAL ONE (07:18)
[2023-10-12] MEDS ORDERED: LIDOCAINE HCL/PF 2% SDV 5ML VIAL ONE (07:18)
[2023-10-12] MEDS ORDERED: LIDOCAINE HCL/PF 1% SDV 5ML VIAL ONE (07:18)
[2023-10-12] MEDS ORDERED: BSS (NA/CA/MG/K) BALANCED SALT SOLUTION OPHTH SOLN 15 ML BOTTLE ONE (07:19)
[2023-10-12] MEDS ORDERED: POVIDONE-IODINE 5% OPHTHALMIC PREP 30 ML SOLUTION ONE (07:19)
[2023-10-12] MEDS ORDERED: KETOROLAC TROMETHAMINE 0.5% EYE DROP 1 DROP DROPS ONE (07:42)
[2023-10-12] MEDS ORDERED: OFLOXACIN 0.3% OPHTHALMIC SOLUTION 5 ML BOTTLE ONE (07:42)
[2023-10-12] MEDS ORDERED: CYCLOPENTOLATE HCL 1% OPHTH SOLN 2 ML BOTTLE ONE (07:42)
[2023-10-12] MEDS ORDERED: PHENYLEPHRINE 2.5% OPTHALMIC DROP 2ML BOTTLE ONE (07:42)
[2023-10-12] MEDS ORDERED: TROPICAMIDE 1% OPHTH SOLN 15 ML BOTTLE ONE (07:42)
[2023-10-12] MEDS: OFLOXACIN 0.3% OPHTHALMIC SOLUTION 5 ML BOTTLE OP SCH (07:59)
[2023-10-12] MEDS: CYCLOPENTOLATE HCL 1% OPHTH SOLN 2 ML BOTTLE OP SCH (07:59)
[2023-10-12] MEDS: PHENYLEPHRINE 2.5% OPHTH SOLN 15 ML BOTTLE OP SCH (08:00)
[2023-10-12] MEDS: TROPICAMIDE 1% OPHTH SOLN 15 ML BOTTLE OP SCH (08:00)
[2023-10-12] MEDS: KETOROLAC TROMETHAMINE 0.5% EYE DROP 1 DROP DROPS OP SCH (08:00)
[2023-10-12] MEDS: BUPIVACAINE HCL/PF 0.75% 10 ML VIAL PNB ONE (09:25)
[2023-10-12] MEDS: LIDOCAINE HCL/PF 2% SDV 5ML VIAL PNB ONE ×2 (09:25)
[2023-10-12] MEDS: LIDOCAINE HCL 1% PRESERVATIVE FREE - 30ML VIAL IO ONE (09:33)
[2023-10-12] MEDS: CHONDROITIN SU A/HYALUR SOD 1 KIT IO ONE (09:35)
[2023-10-12] MEDS: PHENYLEPHRINE/KETOROLAC 4 ML VIAL IO ONE (09:39)
[2023-10-12] MEDS ORDERED: ACETAMINOPHEN 325 MG TABLET (FP) ONE (10:05)
[2023-10-12] MEDS: ACETAMINOPHEN 325 MG TABLET (FP) PO PRN (10:10)
[2023-10-12 10:19] VITALS: RESP 18
[2023-10-12 10:52] VITALS: BP 112/64; PULSE 83; TEMP 96.2
== END 2023-10-12 10:55 | disposition home or self-care (01) ==
LOC: JASU-SURG 05:04
PROVIDERS: ATTEND Ophthalmology
PROC: 08RK3JZ Replacement of Left Lens with Synthetic Substitute, Percutaneous Approach (ICD-10-PCS; principal; 2023-10-12 09:00)
DX: H26.9 Unspecified cataract (principal)
CPT/HCPCS: 82962; J1097; V2632

== ENCOUNTER 2024-07-12 11:41 | Emergency (ER) | payer OTHER ==
[2024-07-12 12:52] VITALS: BP 144/81; PULSE 112; RESP 20; TEMP 97.7; BMI 48.2
[2024-07-12] MEDS: OFLOXACIN 0.3% OTIC SOLUTION 5 ML BOTTLE AS ONE (15:02)
== END 2024-07-12 15:02 | disposition home or self-care (01) ==
LOC: JER 11:41
DX: H60.92 Unspecified otitis externa, left ear (principal); H92.02 Otalgia, left ear
CPT/HCPCS: 93005; 93010; 99283-25

== ENCOUNTER 2024-08-23 16:15 | Observation (INO) | payer OTHER ==
[2024-08-23] MEDS ORDERED: ALBUTEROL SO4 2.5/IPRATROPIUM 0.5 INH SOL 3 ML VIAL.NEB. NEB ONE (17:53)
[2024-08-23] MEDS: ALBUTEROL SO4 2.5/IPRATROPIUM 0.5 INH SOL 3 ML VIAL.NEB. NEB ONE (18:10)
[2024-08-23 18:13] LABS: VENOUS BASE EXCESS 0.7 mmol/L (-2-2); VENOUS O2 SATURATION 51.7 % (70-80); VENOUS PCO2 54.6 mmHg (38-52); VENOUS PH 7.321 (7.310-7.410)
[2024-08-23] MEDS ORDERED: methylPREDNISolone NA SUCC 125 MG/2 ML VIAL ONE (18:27)
[2024-08-23] MEDS: methylPREDNISolone NA SUCC 125 MG/2 ML VIAL IVPUSH ONE (18:33)
[2024-08-23 18:42] LABS: ABSOLUTE IMMATURE GRANULOCYTES 0.03 x10^3/uL (0.0-0.031); BASOPHILS # 0.05 x10^3/uL (0.01-0.08); EOSINOPHIL % 3.9 % (0.8-7.0); EOSINOPHILS # 0.32 x10^3/uL (0.04-0.54); HEMATOCRIT 34.8 % (40.1-51.0); HEMOGLOBIN 11.2 g/dL (13.7-17.5); MCHC 32.2 g/dl (32.3-36.5); MEAN CELL VOLUME 93.8 fl (79.0-92.2); MEAN PLT VOLUME 9.9 fl (9.4-12.4); MONOCYTE # 0.61 x10^3/uL (0.30-0.82); MONOCYTE % 7.5 % (5.3-12.2); PLATELET COUNT 191 x10^3/uL (163-337); RDW 13.5 % (12.2-16.4)
[2024-08-23 18:44] LABS: POTASSIUM 4.7 mmol/L (3.5-5.1)
[2024-08-23 18:47] LABS: ALBUMIN 3.5 g/dl (3.4-5.0); BLOOD UREA NITROGEN 15.4 mg/dL (7-18); CALCIUM 9.3 mg/dL (8.5-10.1); MAGNESIUM 2.1 mg/dL (1.8-2.4)
[2024-08-23 19:06] LABS: BILIRUBIN,TOTAL 0.3 mg/dL (0.2-1); CREATININE 0.8 mg/dL (0.55-1.3); N-TERMINAL BNP 63.7 pg/ml (5-125); TOT PROT 6.8 g/dl (6.4-8.2)
[2024-08-23 21:09] LABS: ARTERIAL BLD GAS O2 SATURATION 97.6 % (95-98); ARTERIAL BLOOD GAS BASE EXCESS 2.8 mmol/L (-2-2); ARTERIAL BLOOD GAS PO2 99.3 mmHg (80-100); ARTERIAL BLOOD GAS pH 7.425 (7.350-7.450); O2 CONTENT 1.75 % vol
[2024-08-23 21:10] LABS: ALLENS TEST POSITIVE
[2024-08-23] MEDS ORDERED: ALBUTEROL SO4 2.5/IPRATROPIUM 0.5 INH SOL 3 ML VIAL.NEB. NEB PRN (21:48)
[2024-08-23] MEDS ORDERED: ALBUTEROL SO4 0.083% IH SOL 2.5 MG/3 ML VIAL.NEB. NEB PRN (23:58)
[2024-08-24] MEDS ORDERED: ALBUTEROL SO4 2.5/IPRATROPIUM 0.5 INH SOL 3 ML VIAL.NEB. NEB SCH
[2024-08-24] MEDS ORDERED: traZODone HCL 50 MG TABLET (FP) ONE ×2 (00:04→21:05)
[2024-08-24] MEDS: ENOXAPARIN NA (PORCINE) 40 MG/0.4 ML DISP.SYRIN SQ SCH (00:06)
[2024-08-24] MEDS: CARVEDILOL 6.25 MG TABLET (FP) PO SCH (00:06)
[2024-08-24] MEDS: LURASIDONE HCL 40 MG TABLET PO SCH (00:07)
[2024-08-24] MEDS: GABAPENTIN 300 MG CAPSULE PO SCH (00:07)
[2024-08-24] MEDS: traZODone HCL 100 MG TABLET (FP) PO SCH (00:09)
[2024-08-24] MEDS: ZOLPIDEM TARTRATE 5 MG TABLET PO PRN (00:15)
[2024-08-24] MEDS: TRAZODONE HCL 300 MG PO SCH (00:17)
[2024-08-24] MEDS: VARENICLINE TARTRATE 1 MG TAB PO SCH (00:45)
[2024-08-24 01:31] VITALS: BMI 49.2
[2024-08-24] MEDS: methylPREDNISolone NA SUCC 40 MG/1 ML VIAL IVPUSH SCH ×2 (02:29→21:18)
[2024-08-24] MEDS: PRIMIDONE 50 MG TABLET PO SCH ×2 (06:48→21:25)
[2024-08-24] MEDS: INSULIN ASPART SLIDING SCALE (NOVOLOG) 1 VIAL SQ SCH ×2 (06:51→11:19)
[2024-08-24 06:56] LABS: HEMATOCRIT 34.4 % (40.1-51.0); HEMOGLOBIN 11.3 g/dL (13.7-17.5); MCHC 32.8 g/dl (32.3-36.5); MEAN PLT VOLUME 10.5 fl (9.4-12.4); PLATELET COUNT 179 x10^3/uL (163-337); RDW 13.2 % (12.2-16.4)
[2024-08-24 07:22] LABS: ALBUMIN 3.4 g/dl (3.4-5.0); BLOOD UREA NITROGEN 14.3 mg/dL (7-18); CALCIUM 9.6 mg/dL (8.5-10.1)
[2024-08-24 07:23] LABS: MAGNESIUM 2.1 mg/dL (1.8-2.4)
[2024-08-24 07:25] LABS: CREATININE 0.8 mg/dL (0.55-1.3); PHOSPHOROUS 2.9 mg/dL (2.5-4.9)
[2024-08-24 07:26] LABS: BILIRUBIN,TOTAL 0.4 mg/dL (0.2-1)
[2024-08-24] MEDS: ALBUTEROL SO4 2.5/IPRATROPIUM 0.5 INH SOL 3 ML VIAL.NEB. NEB SCH (07:50)
[2024-08-24] MEDS ORDERED: LURASIDONE HCL 80 MG PO SCH (10:00)
[2024-08-24] MEDS ORDERED: PATIENT'S OWN MEDICATION (NON-FORMULARY) (Mirabegron [Myrbetriq] 50 MG Tab.Er.24h) PO SCH (10:00)
[2024-08-24] MEDS ORDERED: LURASIDONE HCL 60 MG PO SCH (10:00)
[2024-08-24] MEDS ORDERED: TORSEMIDE 20 MG TABLET (FP) PO SCH (10:00)
[2024-08-24] MEDS: LORATADINE 10 MG TABLET PO SCH (10:28)
[2024-08-24] MEDS: DOCUSATE SODIUM 100 MG CAPSULE (FP) PO SCH (10:28)
[2024-08-24] MEDS: ALBUTEROL SO4 0.083% IH SOL 2.5 MG/3 ML VIAL.NEB. NEB SCH (10:30)
[2024-08-24] MEDS ORDERED: NICOTINE POLACRILEX 2 MG GUM BUC PRN (15:47)
[2024-08-24] MEDS: ACETAMINOPHEN 1000 MG/100 ML BAG IVPB PRN (16:55)
[2024-08-24] MEDS: NICOTINE POLACRILEX 2 MG GUM BUC PRN (18:11)
[2024-08-24] MEDS: MONTELUKAST NA 10 MG TABLET PO SCH (21:14)
[2024-08-24] MEDS: ATORVASTATIN CA 20 MG TABLET (FP) PO SCH (21:16)
[2024-08-24] MEDS: FAMOTIDINE 20 MG TABLET PO SCH (21:16)
[2024-08-24] MEDS: MELATONIN 5 MG TABLETS PO PRN (21:16)
[2024-08-25 06:52] LABS: ABSOLUTE IMMATURE GRANULOCYTES 0.03 x10^3/uL (0.0-0.031); BASOPHILS # 0.01 x10^3/uL (0.01-0.08); EOSINOPHIL % 0.2 % (0.8-7.0); EOSINOPHILS # 0.01 x10^3/uL (0.04-0.54); HEMOGLOBIN 11.1 g/dL (13.7-17.5); MCHC 31.7 g/dl (32.3-36.5); MEAN CELL VOLUME 93.8 fl (79.0-92.2); MEAN PLT VOLUME 9.8 fl (9.4-12.4); MONOCYTE # 0.29 x10^3/uL (0.30-0.82); MONOCYTE % 5.1 % (5.3-12.2); PLATELET COUNT 178 x10^3/uL (163-337); RDW 13.5 % (12.2-16.4)
[2024-08-25 07:16] LABS: CALCIUM 9.5 mg/dL (8.5-10.1)
[2024-08-25 07:20] LABS: CREATININE 0.8 mg/dL (0.55-1.3)
[2024-08-25] MEDS ORDERED: PRIMIDONE 50 MG TABLET PO ONE (09:18)
[2024-08-25] MEDS: TORSEMIDE 20 MG TABLET (FP) PO SCH (09:48)
[2024-08-25] MEDS: ASPIRIN 81 MG CHEWABLE TABLETS PO SCH (09:49)
[2024-08-25] MEDS: LOSARTAN POTASSIUM 50 MG TABLET PO SCH (09:49)
[2024-08-25] MEDS: PRIMIDONE 50 MG TABLET PO ONE (09:57)
[2024-08-25 15:40] VITALS: RESP 18
[2024-08-25] MEDS ORDERED: traZODone HCL 50 MG TABLET (FP) ONE (20:48)
[2024-08-26 01:33] VITALS: BP 121/91; PULSE 85; TEMP 97.5
== END 2024-08-26 02:02 | disposition home health service (06) ==
LOC: JER 16:15 → JERBED 19:15 → J4W 23:02
PROVIDERS: ADMIT Internal Medicine; ATTEND Internal Medicine
PROC: 3E033NZ Introduction of Analgesics, Hypnotics, Sedatives into Peripheral Vein, Percutaneous Approach (ICD-10-PCS; principal; 2024-08-23)
PROC: 3E0F7GC Introduction of Other Therapeutic Substance into Respiratory Tract, Via Natural or Artificial Opening (ICD-10-PCS; 2024-08-23)
PROC: 3E013VG Introduction of Insulin into Subcutaneous Tissue, Percutaneous Approach (ICD-10-PCS; 2024-08-23)
PROC: 3E033GC Introduction of Other Therapeutic Substance into Peripheral Vein, Percutaneous Approach (ICD-10-PCS; 2024-08-23)
DX: J44.1 Chronic obstructive pulmonary disease with (acute) exacerbation (principal); E78.5 Hyperlipidemia, unspecified; Z91.148 Patient's other noncompliance with medication regimen for other reason; Z99.81 Dependence on supplemental oxygen; F31.9 Bipolar disorder, unspecified; I10 Essential (primary) hypertension; E11.9 Type 2 diabetes mellitus without complications; E66.01 Morbid (severe) obesity due to excess calories; G47.33 Obstructive sleep apnea (adult) (pediatric); F41.9 Anxiety disorder, unspecified; Z88.0 Allergy status to penicillin; Z91.013 Allergy to seafood; Z87.891 Personal history of nicotine dependence
CPT/HCPCS: 0241U-QW; 36415; 36600; 71045-TC-FY; 80048; 80053; 82607; 82746; 82803; 82962; 83036; 83735; 83880; 84100; 84484; 85025; 85027; 93005; 93010; 93306-TC; 94640; 94660; 96372; 96374; 96375; 96376; 97116-GP; 97163-GP; 99285-25; G0378